=== PATIENT | male | born 1960 | race Asian ===

== ENCOUNTER 2018-05-08 09:40 | Inpatient (IN) | payer OTHER, MEDICAID ==
[~2018-05-08] VITALS: Ht 170.2 cm; Wt 67.6 kg
[~2018-05-08 09:40] MED LIST: ALBUMIN HUMAN 25%-12.5GM/50ML IV BOTTLE IV ONE; AMLO5TAB66 PO; ASPI-556 PO; BENZ100C68 PO; FURO20 PO; INSLAN SQ; INSU100C6 SQ; KDUR10 PO; PANT40TA25 PO; PRAV40TA4 PO; VALS160T2 PO
[2018-05-08] MEDS ORDERED: ALBUTEROL SULFATE 5 MG/ML 20 ML NEB SOLN [BULK] NEB ONE (10:00)
[2018-05-08] MEDS ORDERED: MethylPREDNISolone SOD SUCC 125 MG/2 ML VIAL IVP ONE (10:00)
[2018-05-08] MEDS ORDERED: IPRATROPIUM BROMIDE 0.5 MG/2.5 ML NEB SOLUTION NEB ONE (10:00)
[2018-05-08] MEDS ORDERED: INSULIN REGULAR, HUMAN 100 UNITS/ML IVP ONE ×2 (10:00→15:00)
[2018-05-08 10:32] LABS: BASOPHILS % (AUTO) 0.2 % (0.0-2.0); EOSINOPHILS % (AUTO) 0 % (1.0-6.0); HEMATOCRIT 26.9 % (41-53); HEMOGLOBIN 8.7 g/dL (13.5-17.5); LYMPHOCYTES # (AUTO) 0.3 K/uL (1.0-4.8); LYMPHOCYTES % (AUTO) 2.3 % (22.0-44.0); MEAN CORPUSCULAR HEMOGLOBIN 27.5 pg (26.0-34.0); MEAN CORPUSCULAR HGB CONC 32.4 G/dL (31.0-37.0); MEAN CORPUSCULAR VOLUME 85 fL (80-100); MONOCYTES # (AUTO) 0.3 K/uL (0.1-1.0); MONOCYTES % (AUTO) 2.3 % (2.0-9.0); NEUTROPHILS # (AUTO) 14.2 K/uL (1.8-7.7); NEUTROPHILS % (AUTO) 95.2 % (40.0-70.0); PLATELET COUNT (AUTO) 350 K/uL (150-450); RED BLOOD CELL COUNT(AUTO) 3.17 MIL/uL (4.50-5.90); RED CELL DISTRIBUTION WIDTH 13.9 % (11.5-14.5)
[2018-05-08 10:33] LABS: ABG A-A DIFF O2 377.2 mmHg (10-20.0); ABG BASE EXCESS -18.8 mmol/L (-2.0-3.0); ABG CARBOXYHEMOGLOBIN 0.3 % (0.0-1.5); ABG METHEMOGLOBIN 0.3 % (0.0-1.5); ABG OXYGEN CONTENT 12.2 mL/dL (15.0-23.0); ABG OXYGEN SATURATION 93.9 % (95.0-98.0); ABG OXYHEMOGLOBIN 93.3 % (94.0-100.0); ABG PCO2 30 mmHg (35-45); ABG TOTAL HEMOGLOBIN 9.2 G/dL (12.0-18.0); SOURCE, BLOOD GAS ARTERIAL; TEMPERATURE, FAHRENHEIT, BG 98.6 FAHREN (96.0-98.6)
[2018-05-08 10:34] LABS: ABG PH 7.148 (7.35-7.450); SITE, BLOOD GAS LFT RADIAL
[2018-05-08 10:35] LABS: O2 DEVICE,BLOOD GAS BIPAP (ROOM AIR)
[2018-05-08] MEDS ORDERED: 0.9% SODIUM CHLORIDE 5 ML NEB SOLUTION NEB ONE (10:39)
[2018-05-08] MEDS ORDERED: ONDANSETRON HCL 4 MG/2 ML VIAL IVP ONE ×2 (11:00→16:30)
[2018-05-08 11:06] LABS: ALBUMIN 2.3 g/dL (3.4-5.0); BILIRUBIN,TOTAL 0.3 mg/dL (0.1-1.0); CALCIUM, TOTAL 8.1 mg/dL (8.8-10.5); CREATININE 8.76 mg/dL (0.60-1.30); TOTAL PROTEIN, SERUM 6.4 g/dL (6.4-8.2)
[2018-05-08 11:18] LABS: GLUCOSE,POINT OF CARE 404 MG/DL (70-110)
[2018-05-08] MEDS ORDERED: SLOWK8 PO (11:28)
[2018-05-08 11:32] LABS: POTASSIUM 6.4 mmol/L (3.5-5.1)
[2018-05-08] MEDS ORDERED: ASPIRIN 81 MG CHEWABLE TABLET PO ONE (11:45)
[2018-05-08 11:54] LABS: GLUCOSE,POINT OF CARE 402 MG/DL (70-110)
[2018-05-08] MEDS ORDERED: HEPARIN SODIUM,PORCINE 1,000 UNITS/ML VIAL IVP ONE ×2 (12:00)
[2018-05-08] MEDS ORDERED: NITROGLYCERIN 2% (1 GM=INCH) PACKET TP ONE (12:00)
[2018-05-08] MEDS ORDERED: FUROSEMIDE 40 MG/4 ML VIAL IVP ONE (12:00)
[2018-05-08 12:06] LABS: APPEARANCE,URINE CLOUDY (CLEAR); BILIRUBIN,URINE NEGATIVE (NEGATIVE); GLUCOSE, URINE (UA) >=1000 mg/dL (NEGATIVE); KETONES,URINE NEGATIVE (NEGATIVE); LEUKOCYTE ESTERASE ,URINE NEGATIVE (NEGATIVE); NITRATE,URINE NEGATIVE (NEGATIVE); OCCULT BLOOD,URINE MODERATE (NEGATIVE); PROTEIN,URINE SEE CONFIRM (NEGATIVE); UROBILINOGEN,URINE 0.2 mg/dL (<=1.0)
[2018-05-08 12:29] LABS: SULFOSALICYLIC ACID,URINE 3+ (Negative); WBC,URINE 0-2 /HPF (0-5)
[2018-05-08 12:30] LABS: AMORPHOUS SEDIMENT,UR Moderate /LPF (None Seen); BACTERIA,URINE Moderate /HPF (None Seen); SQUAMOUS EPITHELIAL CELL,UR Few /LPF (None Seen)
[2018-05-08] MEDS ORDERED: POTASSIUM CHLORIDE 40 MEQ in SODIUM CHLORIDE 0.45% 1,000 ML IV PRN (13:07)
[2018-05-08] MEDS ORDERED: INSULIN REGULAR, HUMAN 100 UNITS in SODIUM CHLORIDE 0.9% 99 ML IV PRN ×2 (13:07)
[2018-05-08] MEDS ORDERED: POTASSIUM CHL 20 MEQ/0.45% NS 1,000 ML IV PRN (13:07)
[2018-05-08] MEDS ORDERED: SODIUM CHLORIDE 0.45% 1,000 ML IV PRN (13:07)
[2018-05-08] MEDS ORDERED: DEXTROSE 5%-0.45% SODIUM CHL 1,000 ML IV PRN (13:07)
[2018-05-08] MEDS ORDERED: SODIUM CHLORIDE 0.9% 1,000 ML IV SCH (13:07)
[2018-05-08] MEDS ORDERED: INSULIN REGULAR, HUMAN 100 UNITS/ML IVP PRN (13:15)
[2018-05-08] MEDS ORDERED: DEXTROSE 50%-WATER 25 GM/50 ML SYRINGE IVP PRN ×2 (13:15→22:30)
[2018-05-08] MEDS ORDERED: SODIUM BICARBONATE [ADULT] 8.4% 50 MEQ/50 ML SYRINGE IVP ONE (13:15)
[2018-05-08] MEDS ORDERED: SODIUM CHLORIDE 0.9% 100 ML ONE (13:25)
[2018-05-08] MEDS ORDERED: HEPARIN SODIUM,PORCINE 100 UNITS/ML 5 ML VIAL IVP ONE (13:26)
[2018-05-08] MEDS ORDERED: CefTRIAXone 1 GM/DEXTROSE 50 ML IV ONE (13:30)
[2018-05-08] MEDS ORDERED: HEPARIN SODIUM 25000 UNITS/D5W 250 ML IV PRN (13:41)
[2018-05-08] MEDS ORDERED: HEPARIN SODIUM,PORCINE 5,000 UNITS/ML VIAL IVP PRN ×3 (13:45→23:00)
[2018-05-08 14:17] LABS: GLUCOSE,POINT OF CARE 442 MG/DL (70-110)
[2018-05-08 14:30] LABS: LACTIC ACID 9.1 mmol/L (0.4-2.0)
[2018-05-08 14:32] LABS: CALCIUM, TOTAL 8.1 mg/dL (8.8-10.5); CREATININE 8.65 mg/dL (0.60-1.30); POTASSIUM 5.1 mmol/L (3.5-5.1)
[2018-05-08 14:37] LABS: BASOPHILS % (AUTO) 0.1 % (0.0-2.0); EOSINOPHILS % (AUTO) 0 % (1.0-6.0); HEMATOCRIT 26.3 % (41-53); HEMOGLOBIN 8.4 g/dL (13.5-17.5); LYMPHOCYTES # (AUTO) 0.2 K/uL (1.0-4.8); LYMPHOCYTES % (AUTO) 1.1 % (22.0-44.0); MEAN CORPUSCULAR HEMOGLOBIN 27.2 pg (26.0-34.0); MEAN CORPUSCULAR HGB CONC 31.9 G/dL (31.0-37.0); MEAN CORPUSCULAR VOLUME 86 fL (80-100); MONOCYTES # (AUTO) 0.3 K/uL (0.1-1.0); MONOCYTES % (AUTO) 1.6 % (2.0-9.0); NEUTROPHILS # (AUTO) 18.1 K/uL (1.8-7.7); NEUTROPHILS % (AUTO) 97.2 % (40.0-70.0); PLATELET COUNT (AUTO) 314 K/uL (150-450); RED BLOOD CELL COUNT(AUTO) 3.08 MIL/uL (4.50-5.90); RED CELL DISTRIBUTION WIDTH 13.9 % (11.5-14.5)
[2018-05-08 15:14] LABS: GLUCOSE,POINT OF CARE 479 MG/DL (70-110)
[2018-05-08] MEDS ORDERED: *CLINICAL-CEFEPIME DOSING CLINICAL ONE (16:00)
[2018-05-08 16:24] LABS: GLUCOSE,POINT OF CARE 408 MG/DL (70-110)
[2018-05-08] MEDS ORDERED: CEFEPIME HCL 1 GM in DEXTROSE 5%-WATER 50 ML IV ONE (16:30)
[2018-05-08 17:19] LABS: GLUCOSE,POINT OF CARE 239 MG/DL (70-110)
[2018-05-08 17:43] LABS: CALCIUM, TOTAL 8.8 mg/dL (8.8-10.5); CREATININE 5.89 mg/dL (0.60-1.30); POTASSIUM 4.2 mmol/L (3.5-5.1)
[2018-05-08 18:04] LABS: GLUCOSE,POINT OF CARE 208 MG/DL (70-110)
[2018-05-08] MEDS ORDERED: 0.9% SODIUM CHLORIDE 10 ML SYRINGE IVP PRN (18:30)
[2018-05-08] MEDS ORDERED: ONDANSETRON HCL 4 MG/2 ML VIAL IVP PRN ×2 (18:30→22:30)
[2018-05-08] MEDS ORDERED: ACETAMINOPHEN 325 MG TABLET PO PRN (18:30)
[2018-05-08 20:28] LABS: GLUCOSE,POINT OF CARE 233 MG/DL (70-110)
[2018-05-08] MEDS ORDERED: NOREPINEPHRINE BITARTRATE 8 MG in DEXTROSE 5%-WATER 242 ML IV PRN (20:55)
[2018-05-08 21:11] LABS: CALCIUM, TOTAL 8.3 mg/dL (8.8-10.5); CREATININE 6.8 mg/dL (0.60-1.30); POTASSIUM 4.4 mmol/L (3.5-5.1)
[2018-05-08 22:10] VITALS: BP 126/70
[2018-05-08] MEDS ORDERED: MAGNESIUM HYDROXIDE SUSPENSION 30 ML UDCUP PO PRN (22:30)
[2018-05-08] MEDS ORDERED: ZOLPIDEM TARTRATE 5 MG TABLET PO PRN (22:30)
[2018-05-08] MEDS ORDERED: ALBUTEROL SULFATE 2.5 MG/0.5 ML NEB SOLUTION NEB PRN (22:30)
[2018-05-08] MEDS ORDERED: IPRATROPIUM BROMIDE 0.5 MG/2.5 ML NEB SOLUTION NEB PRN (22:30)
[2018-05-08] MEDS ORDERED: BISACODYL 10 MG RECTAL RECTAL SUPPOSITORY PR PRN (22:30)
[2018-05-08] MEDS: DOXYCYCLINE HYCLATE 100 MG in DEXTROSE 5%-WATER 100 ML IV SCH (22:31)
[2018-05-08] MEDS ORDERED: SODIUM CHLORIDE 0.9% 250 ML IV ONE (22:34)
[2018-05-09] VITALS (8 sets, daily range): BP systolic 103–136; BP diastolic 59–85
[2018-05-09] MEDS ORDERED: HEPARIN SODIUM,PORCINE 5,000 UNITS/ML VIAL SQ SCH
[2018-05-09] MEDS: INSULIN LISPRO 100 UNITS/ML SQ PRN ×6 (00:21→23:32)
[2018-05-09] MEDS: MethylPREDNISolone SOD SUCC 125 MG/2 ML VIAL IVP SCH ×5 (00:22→23:30)
[2018-05-09] MEDS: HEPARIN SODIUM 25000 UNITS/D5W 250 ML IV PRN ×2 (01:35→16:56)
[2018-05-09] MEDS: IPRATROPIUM BROMIDE 0.5 MG/2.5 ML NEB SOLUTION NEB SCH ×4 (02:00→19:44)
[2018-05-09] MEDS: ALBUTEROL SULFATE 2.5 MG/0.5 ML NEB SOLUTION NEB SCH ×4 (02:00→19:44)
[2018-05-09] MEDS ORDERED: PNEUMOCOCCAL VACCINE POLYVALENT 0.5 ML VIAL [PPSV23] IM ONE (04:15)
[2018-05-09 04:54] LABS: GLUCOSE,POINT OF CARE 261 MG/DL (70-110)
[2018-05-09 04:54] LABS: GLUCOSE,POINT OF CARE 210 MG/DL (70-110)
[2018-05-09 06:05] LABS: GLUCOSE,POINT OF CARE 231 MG/DL (70-110)
[2018-05-09 06:48] LABS: BASOPHILS % (AUTO) 0.1 % (0.0-2.0); EOSINOPHILS % (AUTO) 0 % (1.0-6.0); HEMATOCRIT 21.3 % (41-53); HEMOGLOBIN 7.1 g/dL (13.5-17.5); LYMPHOCYTES # (AUTO) 0.6 K/uL (1.0-4.8); LYMPHOCYTES % (AUTO) 2.3 % (22.0-44.0); MEAN CORPUSCULAR HEMOGLOBIN 27.3 pg (26.0-34.0); MEAN CORPUSCULAR HGB CONC 33.5 G/dL (31.0-37.0); MEAN CORPUSCULAR VOLUME 82 fL (80-100); NEUTROPHILS # (AUTO) 23.5 K/uL (1.8-7.7); PLATELET COUNT (AUTO) 245 K/uL (150-450); RED BLOOD CELL COUNT(AUTO) 2.61 MIL/uL (4.50-5.90); RED CELL DISTRIBUTION WIDTH 13.5 % (11.5-14.5)
[2018-05-09 06:55] LABS: NEUTROPHILS % (AUTO) 93.6 % (40.0-70.0)
[2018-05-09 07:45] LABS: ALBUMIN 2.3 g/dL (3.4-5.0); BILIRUBIN,TOTAL 0.2 mg/dL (0.1-1.0); CALCIUM, TOTAL 8.1 mg/dL (8.8-10.5); CREATININE 7.42 mg/dL (0.60-1.30); MAGNESIUM 2.2 mg/dL (1.80-2.40); PHOSPHORUS 6.3 mg/dL (2.5-4.9); POTASSIUM 4.5 mmol/L (3.5-5.1); THYROID STIMULATING HORMONE 1.04 uIU/mL (0.36-3.74); TOTAL PROTEIN, SERUM 5.9 g/dL (6.4-8.2)
[2018-05-09] MEDS: AmLODIPine BESYLATE 5 MG TABLET PO SCH (09:00)
[2018-05-09] MEDS: BENZONATATE 100 MG CAPSULE PO SCH ×3 (09:34→20:46)
[2018-05-09] MEDS: ASPIRIN 81 MG EC TABLET PO SCH (09:34)
[2018-05-09] MEDS: PANTOPRAZOLE SODIUM 40 MG DR TABLET PO SCH (09:35)
[2018-05-09] MEDS: FUROSEMIDE 40 MG/4 ML VIAL IVP SCH ×2 (09:35→20:46)
[2018-05-09] MEDS: ACETAMINOPHEN 325 MG TABLET PO PRN ×2 (09:35→15:05)
[2018-05-09] MEDS: GuaiFENesin SR 600 MG ER TABLET PO SCH ×2 (09:35→20:46)
[2018-05-09] MEDS: DOCUSATE SODIUM 100 MG CAPSULE PO SCH ×2 (09:35→20:45)
[2018-05-09 10:32] LABS: CALCIUM, TOTAL 8.1 mg/dL (8.8-10.5); CREATININE 7.71 mg/dL (0.60-1.30); POTASSIUM 5.1 mmol/L (3.5-5.1)
[2018-05-09] MEDS: DOXYCYCLINE HYCLATE 100 MG in DEXTROSE 5%-WATER 100 ML IV SCH ×2 (10:55→20:46)
[2018-05-09] MEDS ORDERED: HEPARIN SODIUM,PORCINE 1,000 UNITS/ML VIAL IVP ONE ×3 (12:00→16:45)
[2018-05-09] MEDS ORDERED: SODIUM CHLORIDE 0.9% 2,000 ML IV ONE (13:56)
[2018-05-09 14:39] LABS: GLUCOSE,POINT OF CARE 341 MG/DL (70-110)
[2018-05-09] MEDS ORDERED: SODIUM CHLORIDE 0.9% 1,000 ML IV ONE (14:51)
[2018-05-09 15:26] LABS: CALCIUM, TOTAL 7.9 mg/dL (8.8-10.5); CREATININE 7.12 mg/dL (0.60-1.30); POTASSIUM 4.8 mmol/L (3.5-5.1)
[2018-05-09] MEDS ORDERED: MANNITOL 25%-12.5 GM/50 ML VIAL IVP PRN (16:30)
[2018-05-09 16:49] LABS: GLUCOSE,POINT OF CARE 213 MG/DL (70-110)
[2018-05-09 17:07] LABS: MAGNESIUM 2.1 mg/dL (1.80-2.40)
[2018-05-09] MEDS: CEFEPIME HCL 0.5 GM in DEXTROSE 5%-WATER 50 ML IV SCH (18:04)
[2018-05-09] MEDS: PRAVASTATIN SODIUM 40 MG TABLET PO SCH (20:45)
[2018-05-09] MEDS: INSULIN GLARGINE,HUM.REC.ANLOG 100 UNITS/ML SQ SCH (20:52)
[2018-05-09 21:14] LABS: GLUCOSE,POINT OF CARE 271 MG/DL (70-110)
[2018-05-09 21:45] LABS: AMPHET/METH SCREEN,URINE NEGATIVE (NEGATIVE); BARBITURATE SCREEN, URINE NEGATIVE (NEGATIVE); BENZODIAZEPINES SCREEN,URINE NEGATIVE (NEGATIVE); CANNABINOID SCREEN,URINE NEGATIVE (NEGATIVE); COCAINE SCREEN,URINE NEGATIVE (NEGATIVE); METHADONE SCREEN, URINE NEGATIVE (NEGATIVE); OPIATE SCREEN,URINE NEGATIVE (NEGATIVE); PHENCYCLIDINE SCREEN,URINE NEGATIVE (NEGATIVE)
[2018-05-09] MEDS ORDERED: SODIUM CHLORIDE 0.9% 250 ML IV ONE (22:59)
[2018-05-09 23:34] LABS: GLUCOSE,POINT OF CARE 275 MG/DL (70-110)
[2018-05-10] VITALS: BP 130/72
[2018-05-10] MEDS: ALBUTEROL SULFATE 2.5 MG/0.5 ML NEB SOLUTION NEB SCH ×4 (01:58→19:29)
[2018-05-10] MEDS: IPRATROPIUM BROMIDE 0.5 MG/2.5 ML NEB SOLUTION NEB SCH ×4 (01:59→19:29)
[2018-05-10 04:00] VITALS: BP 116/55
[2018-05-10] MEDS: MethylPREDNISolone SOD SUCC 125 MG/2 ML VIAL IVP SCH ×3 (05:13→17:29)
[2018-05-10 06:15] LABS: GLUCOSE,POINT OF CARE 123 MG/DL (70-110)
[2018-05-10 06:54] LABS: CALCIUM, TOTAL 7.8 mg/dL (8.8-10.5); CREATININE 5.18 mg/dL (0.60-1.30); POTASSIUM 4.3 mmol/L (3.5-5.1)
[2018-05-10 08:00] VITALS: BP 154/81
[2018-05-10] MEDS: ASPIRIN 81 MG EC TABLET PO SCH (08:52)
[2018-05-10] MEDS: FUROSEMIDE 40 MG/4 ML VIAL IVP SCH ×2 (08:52→21:27)
[2018-05-10] MEDS: AmLODIPine BESYLATE 5 MG TABLET PO SCH (08:53)
[2018-05-10] MEDS: GuaiFENesin SR 600 MG ER TABLET PO SCH ×2 (08:53→21:27)
[2018-05-10] MEDS: DOCUSATE SODIUM 100 MG CAPSULE PO SCH ×2 (08:53→21:27)
[2018-05-10] MEDS: DOXYCYCLINE HYCLATE 100 MG in DEXTROSE 5%-WATER 100 ML IV SCH ×2 (08:54→22:26)
[2018-05-10] MEDS: BENZONATATE 100 MG CAPSULE PO SCH ×3 (09:00→21:27)
[2018-05-10 11:05] LABS: CALCIUM, TOTAL 7.6 mg/dL (8.8-10.5); CREATININE 5.49 mg/dL (0.60-1.30); POTASSIUM 4.3 mmol/L (3.5-5.1)
[2018-05-10] MEDS: INSULIN LISPRO 100 UNITS/ML SQ PRN ×3 (11:53→18:15)
[2018-05-10 12:00] VITALS: BP 144/81
[2018-05-10] MEDS: PANTOPRAZOLE SODIUM 40 MG DR TABLET PO SCH (12:25)
[2018-05-10 12:54] LABS: GLUCOSE,POINT OF CARE 421 MG/DL (70-110)
[2018-05-10 15:54] LABS: GLUCOSE,POINT OF CARE 396 MG/DL (70-110)
[2018-05-10 15:54] LABS: GLUCOSE,POINT OF CARE 378 MG/DL (70-110)
[2018-05-10 16:00] VITALS: BP 140/80
[2018-05-10 16:54] LABS: HEMATOCRIT 24.5 % (41-53); MEAN CORPUSCULAR HEMOGLOBIN 27.6 pg (26.0-34.0); MEAN CORPUSCULAR HGB CONC 32.7 G/dL (31.0-37.0); MEAN CORPUSCULAR VOLUME 84 fL (80-100); PLATELET COUNT (AUTO) 224 K/uL (150-450); RED BLOOD CELL COUNT(AUTO) 2.91 MIL/uL (4.50-5.90); RED CELL DISTRIBUTION WIDTH 14.9 % (11.5-14.5)
[2018-05-10] MEDS: CEFEPIME HCL 0.5 GM in DEXTROSE 5%-WATER 50 ML IV SCH (17:29)
[2018-05-10 18:14] LABS: BAND NEUTROPHILS % (MANUAL) 2 % (0-5); LYMPHOCYTES % (MANUAL) 2 % (22-44); MONOCYTES % (MANUAL) 2 % (2-9); SEGMENTED NEUTROPHILS % 94 % (40-70)
[2018-05-10] MEDS: HEPARIN SODIUM 25000 UNITS/D5W 250 ML IV PRN (18:24)
[2018-05-10 19:08] LABS: GLUCOSE,POINT OF CARE 330 MG/DL (70-110)
[2018-05-10 20:00] VITALS: BP 144/57
[2018-05-10] MEDS: PRAVASTATIN SODIUM 40 MG TABLET PO SCH (21:27)
[2018-05-10] MEDS: INSULIN GLARGINE,HUM.REC.ANLOG 100 UNITS/ML SQ SCH (21:28)
[2018-05-11] VITALS (7 sets, daily range): BP systolic 113–134; BP diastolic 64–84
[2018-05-11] MEDS: MethylPREDNISolone SOD SUCC 125 MG/2 ML VIAL IVP SCH ×3 (00:05→12:57)
[2018-05-11] MEDS: IPRATROPIUM BROMIDE 0.5 MG/2.5 ML NEB SOLUTION NEB SCH ×4 (02:29→20:35)
[2018-05-11] MEDS: ALBUTEROL SULFATE 2.5 MG/0.5 ML NEB SOLUTION NEB SCH ×4 (02:29→20:35)
[2018-05-11 04:15] LABS: GLUCOSE,POINT OF CARE 131 MG/DL (70-110)
[2018-05-11] MEDS: ACETAMINOPHEN 325 MG TABLET PO PRN (05:56)
[2018-05-11] MEDS: INSULIN LISPRO 100 UNITS/ML SQ PRN ×4 (05:59→20:49)
[2018-05-11 06:17] LABS: BAND NEUTROPHILS % (MANUAL) 0 % (0-5)
[2018-05-11 06:24] LABS: HEMATOCRIT 24.1 % (41-53); HEMOGLOBIN 8.2 g/dL (13.5-17.5); MEAN CORPUSCULAR HEMOGLOBIN 28.8 pg (26.0-34.0); MEAN CORPUSCULAR VOLUME 85 fL (80-100); PLATELET COUNT (AUTO) 229 K/uL (150-450); RED BLOOD CELL COUNT(AUTO) 2.85 MIL/uL (4.50-5.90); RED CELL DISTRIBUTION WIDTH 14.5 % (11.5-14.5)
[2018-05-11 06:36] LABS: CALCIUM, TOTAL 7.8 mg/dL (8.8-10.5); POTASSIUM 4.8 mmol/L (3.5-5.1)
[2018-05-11] MEDS: HEPARIN SODIUM,PORCINE 5,000 UNITS/ML VIAL IVP PRN ×2 (06:55→21:26)
[2018-05-11] MEDS: HEPARIN SODIUM 25000 UNITS/D5W 250 ML IV PRN ×3 (06:57→21:31)
[2018-05-11 07:26] LABS: LYMPHOCYTES % (MANUAL) 1 % (22-44); MONOCYTES % (MANUAL) 2 % (2-9); SEGMENTED NEUTROPHILS % 97 % (40-70)
[2018-05-11] MEDS: DOCUSATE SODIUM 100 MG CAPSULE PO SCH ×2 (07:40→20:45)
[2018-05-11] MEDS ORDERED: SODIUM CHLORIDE 0.9% 2,000 ML IV ONE (07:51)
[2018-05-11 10:44] LABS: GLUCOMETER DEV NAME(LOC) 5S.2; GLUCOSE,POINT OF CARE 351 MG/DL (70-110)
[2018-05-11] MEDS: FUROSEMIDE 40 MG/4 ML VIAL IVP SCH ×2 (12:53→20:45)
[2018-05-11] MEDS: DOXYCYCLINE HYCLATE 100 MG in DEXTROSE 5%-WATER 100 ML IV SCH ×2 (12:53→20:45)
[2018-05-11] MEDS: GuaiFENesin SR 600 MG ER TABLET PO SCH ×2 (12:54→20:45)
[2018-05-11] MEDS: AmLODIPine BESYLATE 5 MG TABLET PO SCH (12:54)
[2018-05-11] MEDS: ASPIRIN 81 MG EC TABLET PO SCH (12:54)
[2018-05-11] MEDS: BENZONATATE 100 MG CAPSULE PO SCH ×3 (12:54→20:46)
[2018-05-11] MEDS: PANTOPRAZOLE SODIUM 40 MG DR TABLET PO SCH (12:57)
[2018-05-11 13:35] LABS: GLUCOMETER DEV NAME(LOC) 5S.1; GLUCOSE,POINT OF CARE 159 MG/DL (70-110)
[2018-05-11] MEDS ORDERED: HEPARIN SODIUM,PORCINE 1,000 UNITS/ML VIAL IVP ONE (16:16)
[2018-05-11] MEDS: MethylPREDNISolone SOD SUCC 40 MG/ML VIAL IVP SCH (18:23)
[2018-05-11] MEDS: CEFEPIME HCL 0.5 GM in DEXTROSE 5%-WATER 50 ML IV SCH (18:27)
[2018-05-11 19:33] LABS: CREATININE,URINE 57.1 mg/dL (30.0-125.0)
[2018-05-11] MEDS: PRAVASTATIN SODIUM 40 MG TABLET PO SCH (20:45)
[2018-05-11] MEDS: INSULIN GLARGINE,HUM.REC.ANLOG 100 UNITS/ML SQ SCH (20:49)
[2018-05-12] MEDS: MethylPREDNISolone SOD SUCC 40 MG/ML VIAL IVP SCH ×3 (01:06→11:55)
[2018-05-12] MEDS: IPRATROPIUM BROMIDE 0.5 MG/2.5 ML NEB SOLUTION NEB SCH ×4 (02:30→19:45)
[2018-05-12] MEDS: ALBUTEROL SULFATE 2.5 MG/0.5 ML NEB SOLUTION NEB SCH ×4 (02:30→19:45)
[2018-05-12 04:12] VITALS: BP 135/82
[2018-05-12 04:18] LABS: BASOPHILS % (AUTO) 0.2 % (0.0-2.0); EOSINOPHILS % (AUTO) 0 % (1.0-6.0); HEMATOCRIT 24.4 % (41-53); HEMOGLOBIN 8.3 g/dL (13.5-17.5); LYMPHOCYTES # (AUTO) 0.4 K/uL (1.0-4.8); LYMPHOCYTES % (AUTO) 1.9 % (22.0-44.0); MEAN CORPUSCULAR HEMOGLOBIN 28.8 pg (26.0-34.0); MEAN CORPUSCULAR VOLUME 85 fL (80-100); MONOCYTES # (AUTO) 1.4 K/uL (0.1-1.0); NEUTROPHILS # (AUTO) 17.9 K/uL (1.8-7.7); PLATELET COUNT (AUTO) 232 K/uL (150-450); RED BLOOD CELL COUNT(AUTO) 2.88 MIL/uL (4.50-5.90); RED CELL DISTRIBUTION WIDTH 14.6 % (11.5-14.5)
[2018-05-12 04:22] LABS: NEUTROPHILS % (AUTO) 90.9 % (40.0-70.0)
[2018-05-12 04:54] LABS: GLUCOMETER DEV NAME(LOC) 5S.1; GLUCOSE,POINT OF CARE 223 MG/DL (70-110)
[2018-05-12 04:54] LABS: GLUCOMETER DEV NAME(LOC) 5S.2; GLUCOSE,POINT OF CARE 225 MG/DL (70-110)
[2018-05-12 04:54] LABS: GLUCOMETER DEV NAME(LOC) 5S.2; GLUCOSE,POINT OF CARE 301 MG/DL (70-110)
[2018-05-12] MEDS: ACETAMINOPHEN 325 MG TABLET PO PRN (07:50)
[2018-05-12 08:15] LABS: GLUCOMETER DEV NAME(LOC) 5S.1; GLUCOSE,POINT OF CARE 177 MG/DL (70-110)
[2018-05-12 08:23] VITALS: BP 125/77
[2018-05-12] MEDS ORDERED: HEPARIN SODIUM 1000 UNITS/NS 500 ML ONE (09:06)
[2018-05-12] MEDS ORDERED: LIDOCAINE/PF 1% 5 ML VIAL ONE (09:06)
[2018-05-12] MEDS ORDERED: HEPARIN SODIUM,PORCINE 1,000 UNITS/ML 10 ML VIAL ONE (09:06)
[2018-05-12] MEDS ORDERED: OxyCODONE HCL/ACETAMINOPHEN 5-325 MG TABLET PO PRN (09:45)
[2018-05-12] MEDS ORDERED: FLUMAZENIL 0.1 MG/ML 5 ML VIAL IVP ONE (10:23)
[2018-05-12] MEDS ORDERED: MIDAZOLAM HCL 2 MG/2 ML VIAL ONE (10:23)
[2018-05-12] MEDS ORDERED: FentaNYL CITRATE-PF 100 MCG/2 ML VIAL ONE (10:23)
[2018-05-12] MEDS ORDERED: NALOXONE HCL 0.4 MG/ML VIAL ONE (10:23)
[2018-05-12] MEDS ORDERED: FentaNYL CITRATE-PF 100 MCG/2 ML VIAL IVP ONE (10:53)
[2018-05-12] MEDS ORDERED: MIDAZOLAM HCL 2 MG/2 ML VIAL IVP ONE (10:53)
[2018-05-12] MEDS: ASPIRIN 81 MG EC TABLET PO SCH (11:54)
[2018-05-12] MEDS: GuaiFENesin SR 600 MG ER TABLET PO SCH ×2 (11:55→20:42)
[2018-05-12] MEDS: BENZONATATE 100 MG CAPSULE PO SCH ×3 (11:55→20:42)
[2018-05-12] MEDS: AmLODIPine BESYLATE 5 MG TABLET PO SCH (11:55)
[2018-05-12] MEDS: FUROSEMIDE 40 MG/4 ML VIAL IVP SCH ×2 (11:55→20:42)
[2018-05-12] MEDS: DOCUSATE SODIUM 100 MG CAPSULE PO SCH ×2 (11:55→20:42)
[2018-05-12] MEDS: PANTOPRAZOLE SODIUM 40 MG DR TABLET PO SCH (11:55)
[2018-05-12] MEDS: DOXYCYCLINE HYCLATE 100 MG in DEXTROSE 5%-WATER 100 ML IV SCH ×2 (11:56→20:42)
[2018-05-12] MEDS: INSULIN LISPRO 100 UNITS/ML SQ PRN ×3 (12:08→20:51)
[2018-05-12 12:09] VITALS: BP 150/81
[2018-05-12] MEDS: PredniSONE 20 MG TABLET PO SCH (13:41)
[2018-05-12 17:02] VITALS: BP 146/79
[2018-05-12] MEDS ORDERED: INSULIN LISPRO 100 UNITS/ML SQ ONE ×2 (18:00→20:45)
[2018-05-12] MEDS ORDERED: SODIUM CHLORIDE 0.9% 250 ML IV ONE (18:12)
[2018-05-12] MEDS: CEFEPIME HCL 0.5 GM in DEXTROSE 5%-WATER 50 ML IV SCH (18:13)
[2018-05-12 20:00] VITALS: BP 132/69
[2018-05-12] MEDS: PRAVASTATIN SODIUM 40 MG TABLET PO SCH (20:42)
[2018-05-12] MEDS: INSULIN GLARGINE,HUM.REC.ANLOG 100 UNITS/ML SQ SCH (20:46)
[2018-05-12 23:45] VITALS: BP 127/69
[2018-05-13] VITALS (19 sets, daily range): BP systolic 130–157; BP diastolic 69–88
[2018-05-13] MEDS: IPRATROPIUM BROMIDE 0.5 MG/2.5 ML NEB SOLUTION NEB SCH ×4 (01:35→19:34)
[2018-05-13] MEDS: ALBUTEROL SULFATE 2.5 MG/0.5 ML NEB SOLUTION NEB SCH ×4 (01:35→19:34)
[2018-05-13 07:23] LABS: BASOPHILS % (AUTO) 0.1 % (0.0-2.0); EOSINOPHILS % (AUTO) 0 % (1.0-6.0); HEMATOCRIT 23.5 % (41-53); HEMOGLOBIN 8.2 g/dL (13.5-17.5); LYMPHOCYTES # (AUTO) 0.2 K/uL (1.0-4.8); LYMPHOCYTES % (AUTO) 1.1 % (22.0-44.0); MEAN CORPUSCULAR HEMOGLOBIN 29.9 pg (26.0-34.0); MEAN CORPUSCULAR HGB CONC 34.9 G/dL (31.0-37.0); MEAN CORPUSCULAR VOLUME 86 fL (80-100); MONOCYTES # (AUTO) 1.3 K/uL (0.1-1.0); MONOCYTES % (AUTO) 6.9 % (2.0-9.0); NEUTROPHILS # (AUTO) 17.6 K/uL (1.8-7.7); PLATELET COUNT (AUTO) 239 K/uL (150-450); RED BLOOD CELL COUNT(AUTO) 2.75 MIL/uL (4.50-5.90); RED CELL DISTRIBUTION WIDTH 14.3 % (11.5-14.5)
[2018-05-13 07:25] LABS: NEUTROPHILS % (AUTO) 91.9 % (40.0-70.0)
[2018-05-13 07:29] LABS: GLUCOMETER DEV NAME(LOC) 5S.1; GLUCOSE,POINT OF CARE 457 MG/DL (70-110)
[2018-05-13 07:38] LABS: CALCIUM, TOTAL 7.7 mg/dL (8.8-10.5); CREATININE 6.6 mg/dL (0.60-1.30); MAGNESIUM 1.5 mg/dL (1.80-2.40); PHOSPHORUS 6.1 mg/dL (2.5-4.9); POTASSIUM 5.2 mmol/L (3.5-5.1)
[2018-05-13 07:47] LABS: PROTHROMBIN TIME 10.7 SEC (9.4-11.6)
[2018-05-13] MEDS ORDERED: SODIUM BICARBONATE 50 MEQ/50 ML VIAL ONE (08:09)
[2018-05-13] MEDS ORDERED: LIDOCAINE/PF 1% 30 ML VIAL ONE (08:09)
[2018-05-13] MEDS ORDERED: IOHEXOL 300 MG/ML 150 ML VIAL ONE (08:10)
[2018-05-13] MEDS ORDERED: MAGNESIUM SULFATE 2 GM/WATER 50 ML IV ONE (08:30)
[2018-05-13] MEDS ORDERED: FentaNYL CITRATE-PF 100 MCG/2 ML VIAL ONE (08:41)
[2018-05-13] MEDS ORDERED: MIDAZOLAM HCL 2 MG/2 ML VIAL ONE (08:42)
[2018-05-13] MEDS: BENZONATATE 100 MG CAPSULE PO SCH ×3 (09:00→20:49)
[2018-05-13] MEDS: DOCUSATE SODIUM 100 MG CAPSULE PO SCH ×2 (09:00→20:49)
[2018-05-13] MEDS: DOXYCYCLINE HYCLATE 100 MG in DEXTROSE 5%-WATER 100 ML IV SCH ×2 (09:00→21:07)
[2018-05-13] MEDS: AmLODIPine BESYLATE 5 MG TABLET PO SCH (09:00)
[2018-05-13] MEDS: FUROSEMIDE 40 MG/4 ML VIAL IVP SCH ×2 (09:00→20:50)
[2018-05-13] MEDS ORDERED: HEPARIN SODIUM 1000 UNITS/NS 1,000 ML IARTER ONE (09:07)
[2018-05-13] MEDS ORDERED: SODIUM CHLORIDE 0.9% 500 ML IV ONE (09:07)
[2018-05-13] MEDS ORDERED: IOHEXOL 300 MG/ML 50 ML VIAL ONE (09:14)
[2018-05-13] MEDS ORDERED: IOHEXOL 300 MG/ML 150 ML VIAL IARTER ONE (09:15)
[2018-05-13] MEDS ORDERED: FentaNYL CITRATE-PF 100 MCG/2 ML VIAL IVP ONE (09:15)
[2018-05-13] MEDS ORDERED: MIDAZOLAM HCL 2 MG/2 ML VIAL IVP ONE (09:15)
[2018-05-13] MEDS ORDERED: LIDOCAINE 1% 30 ML/SOD BICARB 8.4% 4 ML SQ ONE (09:15)
[2018-05-13] MEDS: PANTOPRAZOLE SODIUM 40 MG DR TABLET PO SCH (11:06)
[2018-05-13] MEDS: PredniSONE 20 MG TABLET PO SCH (11:07)
[2018-05-13] MEDS: GuaiFENesin SR 600 MG ER TABLET PO SCH ×2 (11:07→20:49)
[2018-05-13] MEDS: ASPIRIN 81 MG EC TABLET PO SCH (11:07)
[2018-05-13] MEDS: INSULIN LISPRO 100 UNITS/ML SQ PRN ×3 (11:45→21:00)
[2018-05-13 11:52] LABS: LEGIONELLA PNEUMO AG URINE Negative (Negative); ORGANISM ID Not indicated.; S PNEUMO SOURCE Urine; STREP PNEUMONIAE AG URINE Negative (Negative); STREP.PNEUMO BODY FLUID CULT. Not Indicated
[2018-05-13 15:39] LABS: GLUCOMETER DEV NAME(LOC) 5S.2; GLUCOSE,POINT OF CARE 150 MG/DL (70-110)
[2018-05-13 15:39] LABS: GLUCOMETER DEV NAME(LOC) 5S.2; GLUCOSE,POINT OF CARE 346 MG/DL (70-110)
[2018-05-13 15:39] LABS: GLUCOMETER DEV NAME(LOC) 5S.2; GLUCOSE,POINT OF CARE 268 MG/DL (70-110)
[2018-05-13 15:39] LABS: GLUCOMETER DEV NAME(LOC) 5S.2; GLUCOSE,POINT OF CARE 490 MG/DL (70-110)
[2018-05-13] MEDS: CEFEPIME HCL 0.5 GM in DEXTROSE 5%-WATER 50 ML IV SCH (18:47)
[2018-05-13 19:39] LABS: GLUCOMETER DEV NAME(LOC) 5S.1; GLUCOSE,POINT OF CARE 191 MG/DL (70-110)
[2018-05-13 19:39] LABS: GLUCOMETER DEV NAME(LOC) 5S.1; GLUCOSE,POINT OF CARE 171 MG/DL (70-110)
[2018-05-13] MEDS: PRAVASTATIN SODIUM 40 MG TABLET PO SCH (20:49)
[2018-05-13] MEDS: INSULIN GLARGINE,HUM.REC.ANLOG 100 UNITS/ML SQ SCH (20:54)
[2018-05-14 00:22] VITALS: BP 137/71
[2018-05-14] MEDS: ALBUTEROL SULFATE 2.5 MG/0.5 ML NEB SOLUTION NEB SCH ×3 (01:45→14:00)
[2018-05-14] MEDS: IPRATROPIUM BROMIDE 0.5 MG/2.5 ML NEB SOLUTION NEB SCH ×3 (01:45→14:00)
[2018-05-14 04:27] VITALS: BP 142/82
[2018-05-14] MEDS: INSULIN LISPRO 100 UNITS/ML SQ PRN ×2 (06:39→11:31)
[2018-05-14 07:55] VITALS: BP 134/64
[2018-05-14] MEDS: DOCUSATE SODIUM 100 MG CAPSULE PO SCH (07:59)
[2018-05-14] MEDS: ASPIRIN 81 MG EC TABLET PO SCH ×2 (07:59→08:48)
[2018-05-14] MEDS: GuaiFENesin SR 600 MG ER TABLET PO SCH (07:59)
[2018-05-14] MEDS: DOXYCYCLINE HYCLATE 100 MG in DEXTROSE 5%-WATER 100 ML IV SCH (07:59)
[2018-05-14] MEDS: PredniSONE 20 MG TABLET PO SCH (07:59)
[2018-05-14] MEDS: AmLODIPine BESYLATE 5 MG TABLET PO SCH ×2 (08:00→08:49)
[2018-05-14] MEDS: BENZONATATE 100 MG CAPSULE PO SCH (08:00)
[2018-05-14] MEDS: PANTOPRAZOLE SODIUM 40 MG DR TABLET PO SCH (08:00)
[2018-05-14 08:04] LABS: GLUCOMETER DEV NAME(LOC) 5S.2; GLUCOSE,POINT OF CARE 246 MG/DL (70-110)
[2018-05-14 08:09] LABS: GLUCOMETER DEV NAME(LOC) 5S.2; GLUCOSE,POINT OF CARE 314 MG/DL (70-110)
[2018-05-14 08:46] LABS: MAGNESIUM 1.6 mg/dL (1.80-2.40)
[2018-05-14] MEDS: FUROSEMIDE 40 MG/4 ML VIAL IVP SCH (08:47)
[2018-05-14 09:26] LABS: EOSINOPHILS % (AUTO) 0.4 % (1.0-6.0); HEMATOCRIT 26.3 % (41-53); HEMOGLOBIN 8.7 g/dL (13.5-17.5); LYMPHOCYTES # (AUTO) 0.4 K/uL (1.0-4.8); MEAN CORPUSCULAR HEMOGLOBIN 28.6 pg (26.0-34.0); MEAN CORPUSCULAR VOLUME 87 fL (80-100); MONOCYTES # (AUTO) 1.2 K/uL (0.1-1.0); MONOCYTES % (AUTO) 6.8 % (2.0-9.0); NEUTROPHILS # (AUTO) 16.4 K/uL (1.8-7.7); PLATELET COUNT (AUTO) 252 K/uL (150-450); RED BLOOD CELL COUNT(AUTO) 3.04 MIL/uL (4.50-5.90); RED CELL DISTRIBUTION WIDTH 14.8 % (11.5-14.5)
[2018-05-14 09:28] LABS: NEUTROPHILS % (AUTO) 90.8 % (40.0-70.0)
[2018-05-14 09:57] LABS: BILIRUBIN,TOTAL 0.4 mg/dL (0.1-1.0); CREATININE 4.78 mg/dL (0.60-1.30); POTASSIUM 4.2 mmol/L (3.5-5.1); TOTAL PROTEIN, SERUM 5.3 g/dL (6.4-8.2)
[2018-05-14] MEDS ORDERED: MAGNESIUM SULFATE 3 GM in DEXTROSE 5%-WATER 100 ML IV ONE (11:00)
[2018-05-14 11:42] VITALS: BP 142/72
[2018-05-14 12:39] LABS: GLUCOMETER DEV NAME(LOC) 5S.2; GLUCOSE,POINT OF CARE 286 MG/DL (70-110)
[2018-05-14] MEDS ORDERED: HEPARIN SODIUM,PORCINE 1,000 UNITS/ML VIAL IVP ONE (13:49)
[2018-05-14] MEDS ORDERED: AUD NEB ×2 (14:00→14:06)
[2018-05-14] MEDS ORDERED: BENZ-51 PO (14:00)
[2018-05-14] MEDS ORDERED: CEFE2I IV (14:01)
[2018-05-14] MEDS ORDERED: DOXY100I IV (14:02)
[2018-05-14] MEDS ORDERED: DSS100 PO (14:02)
[2018-05-14] MEDS ORDERED: EPOE10003 SQ (14:03)
[2018-05-14] MEDS ORDERED: IPRNEB IH ×2 (14:04→14:09)
[2018-05-14] MEDS ORDERED: GUAI600T30 PO (14:04)
[2018-05-14] MEDS ORDERED: INSLAN SQ (14:04)
[2018-05-14] MEDS ORDERED: PRED20 PO (14:05)
[2018-05-14] MEDS ORDERED: PANT40TA25 PO (14:05)
[2018-05-14] MEDS ORDERED: ACET-2247 PO (14:06)
[2018-05-14] MEDS ORDERED: BISA10S PR (14:06)
[2018-05-14] MEDS ORDERED: INSU100V SQ (14:08)
[2018-05-14] MEDS ORDERED: MOM30 PO (14:09)
[2018-05-14] MEDS ORDERED: ONDA4 IV (14:10)
[2018-05-14] MEDS ORDERED: PERCT PO (14:10)
[2018-05-14] MEDS ORDERED: ZOLP5 PO (14:10)
[2018-05-17] MEDS ORDERED: EPOETIN ALFA 10,000 UNITS/ML VIAL SQ SCH (09:00)
== END 2018-05-14 13:50 | disposition short-term general hospital (02) | DRG 673 ==
LOC: EMS 09:42 → ICU 22:00 → 5S 05-10 23:25
PROVIDERS: ADMIT Internal Medicine; ATTEND Internal Medicine
PROC: 5A1D70Z Performance of Urinary Filtration, Intermittent, Less than 6 Hours Per Day (ICD-10-PCS; 2018-05-08)
PROC: 06H033Z Insertion of Infusion Device into Inferior Vena Cava, Percutaneous Approach (ICD-10-PCS; 2018-05-08)
PROC: 5A09357 Assistance with Respiratory Ventilation, Less than 24 Consecutive Hours, Continuous Positive Airway Pressure (ICD-10-PCS; 2018-05-08)
PROC: 5A1D70Z Performance of Urinary Filtration, Intermittent, Less than 6 Hours Per Day (ICD-10-PCS; principal; 2018-05-09)
PROC: 30233N1 Transfusion of Nonautologous Red Blood Cells into Peripheral Vein, Percutaneous Approach (ICD-10-PCS; 2018-05-09)
PROC: 5A1D70Z Performance of Urinary Filtration, Intermittent, Less than 6 Hours Per Day (ICD-10-PCS; 2018-05-11)
PROC: 0JH63XZ Insertion of Tunneled Vascular Access Device into Chest Subcutaneous Tissue and Fascia, Percutaneous Approach (ICD-10-PCS; 2018-05-12)
PROC: 02HV33Z Insertion of Infusion Device into Superior Vena Cava, Percutaneous Approach (ICD-10-PCS; 2018-05-12)
PROC: B518ZZA Fluoroscopy of Superior Vena Cava, Guidance (ICD-10-PCS; 2018-05-12)
PROC: B548ZZA Ultrasonography of Superior Vena Cava, Guidance (ICD-10-PCS; 2018-05-12)
PROC: 5A1D70Z Performance of Urinary Filtration, Intermittent, Less than 6 Hours Per Day (ICD-10-PCS; 2018-05-13)
PROC: 4A023N7 Measurement of Cardiac Sampling and Pressure, Left Heart, Percutaneous Approach (ICD-10-PCS; 2018-05-13)
PROC: B2111ZZ Fluoroscopy of Multiple Coronary Arteries using Low Osmolar Contrast (ICD-10-PCS; 2018-05-13)
PROC: B2151ZZ Fluoroscopy of Left Heart using Low Osmolar Contrast (ICD-10-PCS; 2018-05-13)
PROC: B41F1ZZ Fluoroscopy of Right Lower Extremity Arteries using Low Osmolar Contrast (ICD-10-PCS; 2018-05-13)
DX: N17.9 Acute kidney failure, unspecified (principal); E11.10 Type 2 diabetes mellitus with ketoacidosis without coma; J96.01 Acute respiratory failure with hypoxia; I21.4 Non-ST elevation (NSTEMI) myocardial infarction; J18.9 Pneumonia, unspecified organism; I50.21 Acute systolic (congestive) heart failure; I13.0 Hypertensive heart and chronic kidney disease with heart failure and stage 1 through stage 4 chronic kidney disease, or unspecified chronic kidney disease; E87.1 Hypo-osmolality and hyponatremia; J44.1 Chronic obstructive pulmonary disease with (acute) exacerbation; M62.82 Rhabdomyolysis; J44.0 Chronic obstructive pulmonary disease with (acute) lower respiratory infection; N18.4 Chronic kidney disease, stage 4 (severe); D64.9 Anemia, unspecified; E11.319 Type 2 diabetes mellitus with unspecified diabetic retinopathy without macular edema; E11.51 Type 2 diabetes mellitus with diabetic peripheral angiopathy without gangrene; E78.00 Pure hypercholesterolemia, unspecified; E78.5 Hyperlipidemia, unspecified; E11.22 Type 2 diabetes mellitus with diabetic chronic kidney disease; E87.5 Hyperkalemia; K64.8 Other hemorrhoids; F41.9 Anxiety disorder, unspecified; Z82.49 Family history of ischemic heart disease and other diseases of the circulatory system; Z83.3 Family history of diabetes mellitus; Z86.73 Personal history of transient ischemic attack (TIA), and cerebral infarction without residual deficits; Z87.441 Personal history of nephrotic syndrome; Z87.891 Personal history of nicotine dependence; Z89.611 Acquired absence of right leg above knee; Z88.1 Allergy status to other antibiotic agents; Z88.8 Allergy status to other drugs, medicaments and biological substances; Z79.899 Other long term (current) drug therapy
CPT/HCPCS: 36245; 36561; 36600; 76000; 76770; 76937; 80307; 81050; 82575; 82805; 83605; 83735; 84100; 84145; 84156; 84166; 84300; 84443; 84540; 85007; 85379; 86850; 86900; 86901; 86920; 87040; 87081; 87086; 87340; 87449; 87899; 93005; 93306; 93970; 94640; 94644; 94645; 94660; 96365; 96366; 96375; 96376; 99291; G0378; G0480; G0481; J0692; J0696; J1642; J1644; J1815; J1940; J2250; J2310; J2405; J2920; J2930; J3010; J3475; J3490; J7030; J7050; J7060; P9016; P9047; Q9967

== ENCOUNTER 2018-09-14 16:29 | Emergency (ER) | payer OTHER, MEDICAID ==
[~2018-09-14] VITALS: Ht 172.7 cm; Wt 65.9 kg
[~2018-09-14 16:29] MED LIST changes: +ACET-2247 PO; -ALBUMIN HUMAN 25%-12.5GM/50ML IV BOTTLE IV ONE; +AUD NEB; +BENZ-51 PO; -BENZ100C68 PO; +BISA10S PR; +CEFE2I IV; +DOXY100I IV; +DSS100 PO; +EPOE10003 SQ; -FURO20 PO; +GUAI600T30 PO; -INSU100C6 SQ; +INSU100V SQ; +IPRNEB IH; -KDUR10 PO; +MOM30 PO; +ONDA4 IV; +PERCT PO; +PRED20 PO; -VALS160T2 PO; +ZOLP5 PO
[2018-09-14] MEDS ORDERED: PHOSLOC PO (16:50)
[2018-09-14] MEDS ORDERED: CARV3 PO (16:50)
[2018-09-14] MEDS ORDERED: MELA3TAB66 PO (16:50)
[2018-09-14] MEDS ORDERED: SIMV-259 PO (16:50)
[2018-09-14 18:28] LABS: BASOPHILS % (AUTO) 0.9 % (0.0-2.0); EOSINOPHILS % (AUTO) 2.8 % (1.0-6.0); HEMATOCRIT 37.1 % (41-53); HEMOGLOBIN 11.6 g/dL (13.5-17.5); LYMPHOCYTES % (AUTO) 14.8 % (22.0-44.0); MEAN CORPUSCULAR HGB CONC 31.2 G/dL (31.0-37.0); MEAN CORPUSCULAR VOLUME 83 fL (80-100); MONOCYTES # (AUTO) 0.7 K/uL (0.1-1.0); NEUTROPHILS # (AUTO) 4.6 K/uL (1.8-7.7); NEUTROPHILS % (AUTO) 70.5 % (40.0-70.0); PLATELET COUNT (AUTO) 195 K/uL (150-450); RED BLOOD CELL COUNT(AUTO) 4.45 MIL/uL (4.50-5.90); RED CELL DISTRIBUTION WIDTH 19.7 % (11.5-14.5)
[2018-09-14 18:40] LABS: PROTHROMBIN TIME 10.9 SEC (9.4-11.6)
[2018-09-14 18:43] LABS: CALCIUM, TOTAL 9.6 mg/dL (8.8-10.5); CREATININE 6.43 mg/dL (0.60-1.30); POTASSIUM 5.1 mmol/L (3.5-5.1)
[2018-09-14 18:48] LABS: ALBUMIN 2.6 g/dL (3.4-5.0); BILIRUBIN,TOTAL 0.7 mg/dL (0.1-1.0); TOTAL PROTEIN, SERUM 7.6 g/dL (6.4-8.2)
[2018-09-14 21:27] VITALS: BP 140/63
== END 2018-09-14 21:31 | disposition short-term general hospital (02) ==
LOC: EMS 16:31
DX: I13.2 Hypertensive heart and chronic kidney disease with heart failure and with stage 5 chronic kidney disease, or end stage renal disease (principal); E11.22 Type 2 diabetes mellitus with diabetic chronic kidney disease; N18.6 End stage renal disease; I50.9 Heart failure, unspecified; R09.89 Other specified symptoms and signs involving the circulatory and respiratory systems; E78.00 Pure hypercholesterolemia, unspecified; Z99.2 Dependence on renal dialysis; Z87.891 Personal history of nicotine dependence; Z88.1 Allergy status to other antibiotic agents; Z88.5 Allergy status to narcotic agent; Z79.82 Long term (current) use of aspirin; Z79.4 Long term (current) use of insulin; Z79.899 Other long term (current) drug therapy
CPT/HCPCS: 93005

== ENCOUNTER 2019-02-08 16:43 | Inpatient (IN) | payer OTHER ==
[~2019-02-08] VITALS: Ht 165.1 cm; Wt 50.7 kg
[~2019-02-08 16:43] MED LIST changes: -BENZ-51 PO; +CARV3 PO; -DOXY100I IV; -GUAI600T30 PO; +MELA3TAB66 PO; +ONDA-104 IV; -ONDA4 IV; +PHOSLOC PO; +SIMV-259 PO
[2019-02-08 17:02] LABS: GLUCOSE,POINT OF CARE 209 MG/DL (70-110)
[2019-02-08 17:15] LABS: BASOPHILS % (AUTO) 0.2 % (0.0-2.0); EOSINOPHILS % (AUTO) 0.9 % (1.0-6.0); HEMATOCRIT 32.1 % (41-53); HEMOGLOBIN 10.4 g/dL (13.5-17.5); LYMPHOCYTES # (AUTO) 0.3 K/uL (1.0-4.8); LYMPHOCYTES % (AUTO) 6.2 % (22.0-44.0); MEAN CORPUSCULAR HEMOGLOBIN 27.8 pg (26.0-34.0); MEAN CORPUSCULAR HGB CONC 32.4 G/dL (31.0-37.0); MEAN CORPUSCULAR VOLUME 86 fL (80-100); MONOCYTES # (AUTO) 0.6 K/uL (0.1-1.0); MONOCYTES % (AUTO) 11.2 % (2.0-9.0); NEUTROPHILS % (AUTO) 81.5 % (40.0-70.0); RED BLOOD CELL COUNT(AUTO) 3.75 MIL/uL (4.50-5.90); RED CELL DISTRIBUTION WIDTH 16.8 % (11.5-14.5)
[2019-02-08 17:27] LABS: ANION GAP 8 mmol/L (8-16); CALCIUM, TOTAL 8.5 mg/dL (8.8-10.5); CARBON DIOXIDE 27 mmol/L (22-29); CHLORIDE 95 mmol/L (98-107); CREATININE 4.31 mg/dL (0.60-1.30); GLOMERULAR FILTR. RATE CALC 14 mL/min (>60); GLUCOSE,RANDOM 231 mg/dL (70-110); POTASSIUM 5.2 mmol/L (3.5-5.1); SODIUM SERUM 130 mmol/L (136-145); UREA NITROGEN, BLOOD 52 mg/dL (7-18)
[2019-02-08 17:33] LABS: ALANINE AMINOTRANSFERASE 19 U/L (12-78); ALBUMIN 2.3 g/dL (3.4-5.0); ALKALINE PHOSPHATASE 187 U/L (46-116); ASPARTATE AMINOTRANSFERASE 59 U/L (15-37); BILIRUBIN,TOTAL 0.9 mg/dL (0.1-1.0); LIPASE 363 U/L (73-393); TOTAL PROTEIN, SERUM 7.5 g/dL (6.4-8.2)
[2019-02-08 17:34] LABS: LACTIC ACID 1.7 mmol/L (0.4-2.0)
[2019-02-08 17:50] LABS: B-TYPE NATRIURETIC PEPTIDE > 5000 pg/mL (0-100)
[2019-02-08 17:56] LABS: PLATELET COUNT (AUTO) 152 K/uL (150-450)
[2019-02-08] MEDS ORDERED: DOCU-275 PO (19:10)
[2019-02-08] MEDS ORDERED: BISA10SU11 PR (19:10)
[2019-02-08] MEDS ORDERED: 0.9% SODIUM CHLORIDE 10 ML SYRINGE IVP PRN (19:15)
[2019-02-08] MEDS ORDERED: ACETAMINOPHEN 325 MG TABLET PO PRN (19:15)
[2019-02-08] MEDS ORDERED: ALBUTEROL SULFATE 2.5 MG/0.5 ML NEB SOLUTION NEB ONE (19:15)
[2019-02-08] MEDS ORDERED: FUROSEMIDE 40 MG/4 ML VIAL IVP ONE (19:15)
[2019-02-08] MEDS ORDERED: ONDANSETRON HCL 4 MG/2 ML VIAL IVP PRN (19:15)
[2019-02-08] MEDS ORDERED: SODIUM POLYSTYRENE SULFONATE 15 GM/60 ML SUSPENSION BOTTLE PO ONE (19:30)
[2019-02-08] MEDS ORDERED: 0.9% SODIUM CHLORIDE 5 ML NEB SOLUTION NEB ONE (19:46)
[2019-02-08] MEDS ORDERED: OXYGEN THERAPY IH SCH (20:00)
[2019-02-08] MEDS ORDERED: LOSA50TA65 PO (20:30)
[2019-02-08] MEDS ORDERED: ASPI81TA39 PO (20:30)
[2019-02-08] MEDS ORDERED: SIMV-46 PO (20:30)
[2019-02-08] MEDS ORDERED: CARV12.530 PO (20:30)
[2019-02-08] MEDS ORDERED: SEVE800T7 PO (20:30)
[2019-02-08 21:16] VITALS: BP 148/74
[2019-02-08] MEDS ORDERED: DEXTROSE 50%-WATER 25 GM/50 ML SYRINGE IVP PRN (22:30)
[2019-02-08] MEDS ORDERED: BISACODYL 10 MG RECTAL RECTAL SUPPOSITORY PR PRN (22:45)
[2019-02-08] MEDS ORDERED: ZOLPIDEM TARTRATE 5 MG TABLET PO PRN (22:45)
[2019-02-08] MEDS ORDERED: MAGNESIUM HYDROXIDE SUSPENSION 30 ML UDCUP PO PRN (22:45)
[2019-02-08] MEDS: HEPARIN SODIUM,PORCINE 5,000 UNITS/ML VIAL SQ SCH (23:16)
[2019-02-08] MEDS: INSULIN LISPRO 100 UNITS/ML SQ PRN (23:19)
[2019-02-09] VITALS (7 sets, daily range): BP systolic 150–166; BP diastolic 77–94
[2019-02-09 06:53] LABS: BASOPHILS % (AUTO) 0.3 % (0.0-2.0); EOSINOPHILS % (AUTO) 1.2 % (1.0-6.0); HEMATOCRIT 33.2 % (41-53); HEMOGLOBIN 10.7 g/dL (13.5-17.5); LYMPHOCYTES # (AUTO) 0.4 K/uL (1.0-4.8); LYMPHOCYTES % (AUTO) 7.8 % (22.0-44.0); MEAN CORPUSCULAR HEMOGLOBIN 27.7 pg (26.0-34.0); MEAN CORPUSCULAR HGB CONC 32.2 G/dL (31.0-37.0); MEAN CORPUSCULAR VOLUME 86 fL (80-100); MONOCYTES # (AUTO) 0.6 K/uL (0.1-1.0); MONOCYTES % (AUTO) 10.2 % (2.0-9.0); NEUTROPHILS # (AUTO) 4.6 K/uL (1.8-7.7); NEUTROPHILS % (AUTO) 80.5 % (40.0-70.0); RED BLOOD CELL COUNT(AUTO) 3.85 MIL/uL (4.50-5.90); RED CELL DISTRIBUTION WIDTH 16.5 % (11.5-14.5)
[2019-02-09 06:57] LABS: GLUCOMETER DEV NAME(LOC) 5S.2A; GLUCOSE,POINT OF CARE 178 MG/DL (70-110)
[2019-02-09 07:14] LABS: CALCIUM, TOTAL 8.4 mg/dL (8.8-10.5); CHOL/HDL RATIO 1.9 (4.2-7.3); CREATININE 5.04 mg/dL (0.60-1.30); FREE T4 (FREE THYROXINE) 1.25 ng/dL (0.76-1.46); MAGNESIUM 2.3 mg/dL (1.80-2.40); POTASSIUM 4.4 mmol/L (3.5-5.1); THYROID STIMULATING HORMONE 2.81 uIU/mL (0.36-3.74)
[2019-02-09 07:52] LABS: HEMOGLOBIN A1C 7.6 % (4.5-6.2)
[2019-02-09] MEDS: ASPIRIN 81 MG CHEWABLE TABLET PO SCH (08:23)
[2019-02-09] MEDS: LOSARTAN POTASSIUM 50 MG TABLET PO SCH (08:23)
[2019-02-09] MEDS: SEVELAMER CARBONATE 800 MG TABLET PO SCH ×3 (08:24→22:01)
[2019-02-09] MEDS: HEPARIN SODIUM,PORCINE 5,000 UNITS/ML VIAL SQ SCH ×2 (08:24→22:01)
[2019-02-09] MEDS: AmLODIPine BESYLATE 10 MG TABLET PO SCH (09:00)
[2019-02-09] MEDS: CARVEDILOL 12.5 MG TABLET PO SCH ×2 (09:00→22:01)
[2019-02-09 11:05] LABS: PLATELET COUNT (AUTO) 143 K/uL (150-450)
[2019-02-09 11:14] LABS: INR 1.2 (0.9-1.1); PROTHROMBIN TIME 12.4 SEC (9.4-11.6)
[2019-02-09] MEDS ORDERED: SODIUM CHLORIDE 0.9% 2,000 ML IV ONE (16:45)
[2019-02-09 16:56] LABS: GLUCOMETER DEV NAME(LOC) 5S.1; GLUCOSE,POINT OF CARE 118 MG/DL (70-110)
[2019-02-09] MEDS: ONDANSETRON HCL 4 MG/2 ML VIAL IVP PRN (19:05)
[2019-02-09] MEDS ORDERED: INSULIN GLARGINE,HUM.REC.ANLOG 100 UNITS/ML SQ SCH (21:00)
[2019-02-09] MEDS: INSULIN GLARGINE,HUM.REC.ANLOG 100 UNITS/ML SQ SCH (21:00)
[2019-02-09 21:48] LABS: SPECIMENTYPE,BODY FLUID THORACENTESIS
[2019-02-09 22:00] LABS: APPEARANCE,SPUN,BODY FLUID CLEAR (CLEAR); APPEARANCE,UNSPUN,BODY FLUID CLOUDY (CLEAR); COLOR,BODY FLUID LT YELLOW (LT YELLOW); NEUTROPHILS,BODY FLUID 25 %; TOTAL VOLUME,BODY FLUID 160 mL; WBC, BODY FLUID 45 /cu. mm.
[2019-02-09 22:01] LABS: BASOPHILS,BODY FLUID 0 %; EOSINOPHILS,BF (ANAL) 0 %; LYMPHOCYTES,BODY FLUID 75 %; MONOCYTES,BODY FLUID 0 %; PH, BODY FLUID 8
[2019-02-09] MEDS: PANTOPRAZOLE SODIUM 40 MG DR TABLET PO SCH (22:01)
[2019-02-10 04:35] VITALS: BP 160/82
[2019-02-10 06:07] LABS: GLUCOMETER DEV NAME(LOC) 5S.2A; GLUCOSE,POINT OF CARE 123 MG/DL (70-110)
[2019-02-10 07:12] LABS: GLUCOMETER DEV NAME(LOC) 5S.1; GLUCOSE,POINT OF CARE 94 MG/DL (70-110)
[2019-02-10 07:12] LABS: GLUCOMETER DEV NAME(LOC) 5S.1; GLUCOSE,POINT OF CARE 75 MG/DL (70-110)
[2019-02-10 07:14] LABS: BASOPHILS % (AUTO) 0.5 % (0.0-2.0); EOSINOPHILS % (AUTO) 1.2 % (1.0-6.0); HEMATOCRIT 34.3 % (41-53); HEMOGLOBIN 11.1 g/dL (13.5-17.5); LYMPHOCYTES # (AUTO) 0.3 K/uL (1.0-4.8); LYMPHOCYTES % (AUTO) 6.7 % (22.0-44.0); MEAN CORPUSCULAR HEMOGLOBIN 27.8 pg (26.0-34.0); MEAN CORPUSCULAR HGB CONC 32.3 G/dL (31.0-37.0); MEAN CORPUSCULAR VOLUME 86 fL (80-100); MONOCYTES # (AUTO) 0.4 K/uL (0.1-1.0); MONOCYTES % (AUTO) 8.3 % (2.0-9.0); NEUTROPHILS # (AUTO) 4.1 K/uL (1.8-7.7); NEUTROPHILS % (AUTO) 83.3 % (40.0-70.0); RED BLOOD CELL COUNT(AUTO) 3.99 MIL/uL (4.50-5.90); RED CELL DISTRIBUTION WIDTH 16.4 % (11.5-14.5)
[2019-02-10 07:24] LABS: ALANINE AMINOTRANSFERASE 12 U/L (12-78); ALBUMIN 2.1 g/dL (3.4-5.0); ALKALINE PHOSPHATASE 160 U/L (46-116); ANION GAP 11 mmol/L (8-16); ASPARTATE AMINOTRANSFERASE 33 U/L (15-37); BILIRUBIN,TOTAL 0.7 mg/dL (0.1-1.0); CALCIUM, TOTAL 8.2 mg/dL (8.8-10.5); CARBON DIOXIDE 27 mmol/L (22-29); CHLORIDE 99 mmol/L (98-107); CREATININE 3.49 mg/dL (0.60-1.30); GLOMERULAR FILTR. RATE CALC 18 mL/min (>60); GLUCOSE,RANDOM 80 mg/dL (70-110); POTASSIUM 4.4 mmol/L (3.5-5.1); SODIUM SERUM 137 mmol/L (136-145); TOTAL PROTEIN, SERUM 7.2 g/dL (6.4-8.2); UREA NITROGEN, BLOOD 30 mg/dL (7-18)
[2019-02-10 07:28] LABS: B-TYPE NATRIURETIC PEPTIDE > 5000 pg/mL (0-100)
[2019-02-10 07:40] LABS: PLATELET COUNT (AUTO) 143 K/uL (150-450)
[2019-02-10 08:01] VITALS: BP 160/79
[2019-02-10] MEDS: IPRATROPIUM BROMIDE 0.5 MG/2.5 ML NEB SOLUTION NEB PRN ×2 (08:39→15:20)
[2019-02-10] MEDS: ALBUTEROL SULFATE 2.5 MG/0.5 ML NEB SOLUTION NEB PRN ×2 (08:40→15:20)
[2019-02-10] MEDS: HEPARIN SODIUM,PORCINE 5,000 UNITS/ML VIAL SQ SCH ×2 (09:00→21:40)
[2019-02-10] MEDS: SEVELAMER CARBONATE 800 MG TABLET PO SCH ×3 (09:00→21:40)
[2019-02-10] MEDS: CARVEDILOL 12.5 MG TABLET PO SCH ×2 (09:00→21:40)
[2019-02-10 11:30] VITALS: BP 150/80
[2019-02-10] MEDS: ASPIRIN 81 MG CHEWABLE TABLET PO SCH (12:23)
[2019-02-10] MEDS: ISONIAZID 300 MG TABLET PO SCH (12:23)
[2019-02-10] MEDS: LOSARTAN POTASSIUM 50 MG TABLET PO SCH (12:23)
[2019-02-10] MEDS: PYRAZINAMIDE 500 MG TABLET PO SCH (12:24)
[2019-02-10] MEDS: ETHAMBUTOL HCL 400 MG TABLET PO SCH (12:24)
[2019-02-10] MEDS: RIFAMPIN 300 MG CAPSULE PO SCH (12:25)
[2019-02-10] MEDS: PYRIDOXINE HCL 50 MG TABLET PO SCH (12:25)
[2019-02-10 16:08] VITALS: BP 159/80
[2019-02-10] MEDS: AmLODIPine BESYLATE 10 MG TABLET PO SCH (16:16)
[2019-02-10] MEDS ORDERED: SODIUM CHLORIDE 0.9% 2,000 ML IV ONE (16:24)
[2019-02-10 17:11] LABS: GLUCOMETER DEV NAME(LOC) 5S.1; GLUCOSE,POINT OF CARE 91 MG/DL (70-110)
[2019-02-10 17:11] LABS: GLUCOMETER DEV NAME(LOC) 5S.1; GLUCOSE,POINT OF CARE 179 MG/DL (70-110)
[2019-02-10] MEDS: LORazepam 0.5 MG TABLET PO PRN (18:01)
[2019-02-10] MEDS: INSULIN LISPRO 100 UNITS/ML SQ PRN (18:01)
[2019-02-10 19:36] VITALS: BP 119/58
[2019-02-10] MEDS: INSULIN GLARGINE,HUM.REC.ANLOG 100 UNITS/ML SQ SCH (21:00)
[2019-02-10] MEDS: PANTOPRAZOLE SODIUM 40 MG DR TABLET PO SCH (21:40)
[2019-02-10 23:37] VITALS: BP 129/64
[2019-02-11 05:57] VITALS: BP 155/77
[2019-02-11 06:28] LABS: BASOPHILS % (AUTO) 0.5 % (0.0-2.0); EOSINOPHILS % (AUTO) 1.8 % (1.0-6.0); HEMATOCRIT 32.5 % (41-53); HEMOGLOBIN 10.4 g/dL (13.5-17.5); LYMPHOCYTES # (AUTO) 0.4 K/uL (1.0-4.8); MEAN CORPUSCULAR HEMOGLOBIN 27.4 pg (26.0-34.0); MEAN CORPUSCULAR VOLUME 86 fL (80-100); MONOCYTES # (AUTO) 0.5 K/uL (0.1-1.0); MONOCYTES % (AUTO) 11.6 % (2.0-9.0); NEUTROPHILS # (AUTO) 3.6 K/uL (1.8-7.7); NEUTROPHILS % (AUTO) 77.1 % (40.0-70.0); RED BLOOD CELL COUNT(AUTO) 3.78 MIL/uL (4.50-5.90); RED CELL DISTRIBUTION WIDTH 16.7 % (11.5-14.5)
[2019-02-11 06:41] LABS: CALCIUM, TOTAL 8.1 mg/dL (8.8-10.5); CREATININE 3.47 mg/dL (0.60-1.30); MAGNESIUM 1.8 mg/dL (1.80-2.40); PHOSPHORUS 3.5 mg/dL (2.5-4.9); POTASSIUM 4.5 mmol/L (3.5-5.1)
[2019-02-11 07:39] VITALS: BP 117/58
[2019-02-11] MEDS: LOSARTAN POTASSIUM 50 MG TABLET PO SCH (08:00)
[2019-02-11 08:20] LABS: PLATELET COUNT (AUTO) 157 K/uL (150-450)
[2019-02-11] MEDS: HEPARIN SODIUM,PORCINE 5,000 UNITS/ML VIAL SQ SCH ×2 (08:41→21:35)
[2019-02-11] MEDS: PYRIDOXINE HCL 50 MG TABLET PO SCH (08:42)
[2019-02-11] MEDS: RIFAMPIN 300 MG CAPSULE PO SCH (08:43)
[2019-02-11] MEDS: AmLODIPine BESYLATE 10 MG TABLET PO SCH (08:43)
[2019-02-11] MEDS: ISONIAZID 300 MG TABLET PO SCH (08:43)
[2019-02-11] MEDS: SEVELAMER CARBONATE 800 MG TABLET PO SCH ×2 (08:43→17:56)
[2019-02-11] MEDS: ASPIRIN 81 MG CHEWABLE TABLET PO SCH (08:44)
[2019-02-11 09:46] VITALS: BP 130/64
[2019-02-11] MEDS: CARVEDILOL 12.5 MG TABLET PO SCH ×2 (09:48→21:35)
[2019-02-11 12:05] VITALS: BP 132/61
[2019-02-11 12:31] LABS: GLUCOMETER DEV NAME(LOC) 5S.1; GLUCOSE,POINT OF CARE 289 MG/DL (70-110)
[2019-02-11 12:31] LABS: GLUCOMETER DEV NAME(LOC) 5S.1; GLUCOSE,POINT OF CARE 142 MG/DL (70-110)
[2019-02-11 12:31] LABS: GLUCOMETER DEV NAME(LOC) 5S.1; GLUCOSE,POINT OF CARE 79 MG/DL (70-110)
[2019-02-11] MEDS: INSULIN LISPRO 100 UNITS/ML SQ PRN ×2 (12:34→21:41)
[2019-02-11] MEDS: IPRATROPIUM BROMIDE 0.5 MG/2.5 ML NEB SOLUTION NEB PRN (14:55)
[2019-02-11] MEDS: ALBUTEROL SULFATE 2.5 MG/0.5 ML NEB SOLUTION NEB PRN (14:55)
[2019-02-11] MEDS ORDERED: AMLO10TA7 PO (15:26)
[2019-02-11 15:34] VITALS: BP 126/57
[2019-02-11] MEDS: LORazepam 0.5 MG TABLET PO PRN (17:01)
[2019-02-11 17:36] LABS: GLUCOMETER DEV NAME(LOC) 5S.1; GLUCOSE,POINT OF CARE 119 MG/DL (70-110)
[2019-02-11 19:29] VITALS: BP 141/75
[2019-02-11] MEDS: BUDESONIDE 0.5 MG/2 ML NEB SOLUTION NEB SCH (19:55)
[2019-02-11] MEDS: IPRATROPIUM BROMIDE 0.5 MG/2.5 ML NEB SOLUTION NEB SCH ×2 (19:55→23:38)
[2019-02-11] MEDS: ALBUTEROL SULFATE 2.5 MG/0.5 ML NEB SOLUTION NEB SCH ×2 (19:55→23:38)
[2019-02-11] MEDS: PANTOPRAZOLE SODIUM 40 MG DR TABLET PO SCH (21:35)
[2019-02-11] MEDS: INSULIN GLARGINE,HUM.REC.ANLOG 100 UNITS/ML SQ SCH (21:40)
[2019-02-12] VITALS (7 sets, daily range): BP systolic 120–150; BP diastolic 61–73
[2019-02-12] MEDS: IPRATROPIUM BROMIDE 0.5 MG/2.5 ML NEB SOLUTION NEB SCH ×5 (03:09→20:26)
[2019-02-12] MEDS: ALBUTEROL SULFATE 2.5 MG/0.5 ML NEB SOLUTION NEB SCH ×5 (03:10→20:27)
[2019-02-12] MEDS: BUDESONIDE 0.5 MG/2 ML NEB SOLUTION NEB SCH ×2 (08:32→21:00)
[2019-02-12] MEDS: HEPARIN SODIUM,PORCINE 5,000 UNITS/ML VIAL SQ SCH ×2 (09:57→20:41)
[2019-02-12] MEDS: PYRIDOXINE HCL 50 MG TABLET PO SCH (09:57)
[2019-02-12] MEDS: ASPIRIN 81 MG CHEWABLE TABLET PO SCH (09:57)
[2019-02-12] MEDS: SEVELAMER CARBONATE 800 MG TABLET PO SCH ×3 (10:03→18:28)
[2019-02-12] MEDS: LOSARTAN POTASSIUM 50 MG TABLET PO SCH (11:25)
[2019-02-12] MEDS: AmLODIPine BESYLATE 10 MG TABLET PO SCH (11:25)
[2019-02-12] MEDS: ISONIAZID 300 MG TABLET PO SCH (11:25)
[2019-02-12] MEDS: CARVEDILOL 12.5 MG TABLET PO SCH ×2 (11:25→20:41)
[2019-02-12] MEDS: RIFAMPIN 300 MG CAPSULE PO SCH (11:26)
[2019-02-12] MEDS: PYRAZINAMIDE 500 MG TABLET PO SCH (11:26)
[2019-02-12] MEDS: ETHAMBUTOL HCL 400 MG TABLET PO SCH (11:26)
[2019-02-12 17:47] LABS: GLUCOMETER DEV NAME(LOC) 5S.1; GLUCOSE,POINT OF CARE 160 MG/DL (70-110)
[2019-02-12 17:47] LABS: GLUCOMETER DEV NAME(LOC) 5S.1; GLUCOSE,POINT OF CARE 112 MG/DL (70-110)
[2019-02-12 17:47] LABS: GLUCOMETER DEV NAME(LOC) 5S.1; GLUCOSE,POINT OF CARE 13 MG/DL (70-110)
[2019-02-12 17:47] LABS: GLUCOMETER DEV NAME(LOC) 5S.1; GLUCOSE,POINT OF CARE 150 MG/DL (70-110)
[2019-02-12 17:47] LABS: GLUCOMETER DEV NAME(LOC) 5S.1; GLUCOSE,POINT OF CARE 97 MG/DL (70-110)
[2019-02-12 17:47] LABS: GLUCOMETER DEV NAME(LOC) 5S.1; GLUCOSE,POINT OF CARE 117 MG/DL (70-110)
[2019-02-12] MEDS: PANTOPRAZOLE SODIUM 40 MG DR TABLET PO SCH (20:41)
[2019-02-12] MEDS: INSULIN GLARGINE,HUM.REC.ANLOG 100 UNITS/ML SQ SCH (21:00)
[2019-02-13 03:53] VITALS: BP 133/70
[2019-02-13] MEDS ORDERED: 0.9% SODIUM CHLORIDE 5 ML NEB SOLUTION NEB ONE (04:00)
[2019-02-13] MEDS: IPRATROPIUM BROMIDE 0.5 MG/2.5 ML NEB SOLUTION NEB SCH ×7 (04:10→23:13)
[2019-02-13] MEDS: ALBUTEROL SULFATE 2.5 MG/0.5 ML NEB SOLUTION NEB SCH ×7 (04:10→23:13)
[2019-02-13 08:21] VITALS: BP 130/67
[2019-02-13] MEDS: BUDESONIDE 0.5 MG/2 ML NEB SOLUTION NEB SCH ×2 (08:30→19:04)
[2019-02-13] MEDS: SEVELAMER CARBONATE 800 MG TABLET PO SCH ×3 (08:53→17:51)
[2019-02-13] MEDS: RIFAMPIN 300 MG CAPSULE PO SCH (08:53)
[2019-02-13] MEDS: PYRIDOXINE HCL 50 MG TABLET PO SCH (08:53)
[2019-02-13] MEDS: CARVEDILOL 12.5 MG TABLET PO SCH ×2 (08:54→21:31)
[2019-02-13] MEDS: HEPARIN SODIUM,PORCINE 5,000 UNITS/ML VIAL SQ SCH ×2 (08:54→21:31)
[2019-02-13] MEDS: ASPIRIN 81 MG CHEWABLE TABLET PO SCH (08:55)
[2019-02-13] MEDS: ISONIAZID 300 MG TABLET PO SCH (08:55)
[2019-02-13] MEDS: LOSARTAN POTASSIUM 50 MG TABLET PO SCH (10:35)
[2019-02-13] MEDS: AmLODIPine BESYLATE 10 MG TABLET PO SCH (10:35)
[2019-02-13 10:53] VITALS: BP 142/67
[2019-02-13 11:42] LABS: GLUCOMETER DEV NAME(LOC) 5S.2A; GLUCOSE,POINT OF CARE 128 MG/DL (70-110)
[2019-02-13 14:31] LABS: GLUCOMETER DEV NAME(LOC) 5S.1; GLUCOSE,POINT OF CARE 20 MG/DL (70-110)
[2019-02-13 14:31] LABS: GLUCOMETER DEV NAME(LOC) 5S.1; GLUCOSE,POINT OF CARE 147 MG/DL (70-110)
[2019-02-13 14:31] LABS: GLUCOMETER DEV NAME(LOC) 5S.1; GLUCOSE,POINT OF CARE 147 MG/DL (70-110)
[2019-02-13 14:31] LABS: GLUCOMETER DEV NAME(LOC) 5S.1; GLUCOSE,POINT OF CARE 198 MG/DL (70-110)
[2019-02-13] MEDS: ONDANSETRON HCL 4 MG/2 ML VIAL IVP PRN (16:02)
[2019-02-13 16:15] VITALS: BP 139/77
[2019-02-13 18:08] LABS: HEMATOCRIT 32.1 % (41-53); HEMOGLOBIN 10.6 g/dL (13.5-17.5)
[2019-02-13 19:55] VITALS: BP 146/71
[2019-02-13] MEDS: PANTOPRAZOLE SODIUM 40 MG DR TABLET PO SCH (21:31)
[2019-02-13 23:07] VITALS: BP 131/63
[2019-02-14 00:39] LABS: HEMATOCRIT 31.4 % (41-53); HEMOGLOBIN 10.1 g/dL (13.5-17.5)
[2019-02-14] MEDS: ALBUTEROL SULFATE 2.5 MG/0.5 ML NEB SOLUTION NEB SCH ×7 (02:13→23:17)
[2019-02-14] MEDS: IPRATROPIUM BROMIDE 0.5 MG/2.5 ML NEB SOLUTION NEB SCH ×7 (02:13→23:17)
[2019-02-14 04:12] VITALS: BP 138/62
[2019-02-14] MEDS: INSULIN LISPRO 100 UNITS/ML SQ PRN ×2 (06:18→21:14)
[2019-02-14 07:30] VITALS: BP 135/68
[2019-02-14 07:41] LABS: GLUCOMETER DEV NAME(LOC) 5S.1; GLUCOSE,POINT OF CARE 131 MG/DL (70-110)
[2019-02-14] MEDS: BUDESONIDE 0.5 MG/2 ML NEB SOLUTION NEB SCH ×2 (08:34→19:39)
[2019-02-14 09:32] LABS: BASOPHILS % (AUTO) 0.1 % (0.0-2.0); EOSINOPHILS % (AUTO) 1.6 % (1.0-6.0); HEMATOCRIT 33.1 % (41-53); HEMOGLOBIN 10.6 g/dL (13.5-17.5); LYMPHOCYTES # (AUTO) 0.4 K/uL (1.0-4.8); LYMPHOCYTES % (AUTO) 6.5 % (22.0-44.0); MEAN CORPUSCULAR HEMOGLOBIN 27.7 pg (26.0-34.0); MEAN CORPUSCULAR HGB CONC 32.1 G/dL (31.0-37.0); MEAN CORPUSCULAR VOLUME 86 fL (80-100); MONOCYTES # (AUTO) 0.5 K/uL (0.1-1.0); MONOCYTES % (AUTO) 8.2 % (2.0-9.0); NEUTROPHILS # (AUTO) 5.2 K/uL (1.8-7.7); NEUTROPHILS % (AUTO) 83.6 % (40.0-70.0); RED BLOOD CELL COUNT(AUTO) 3.84 MIL/uL (4.50-5.90); RED CELL DISTRIBUTION WIDTH 16.6 % (11.5-14.5)
[2019-02-14 09:50] VITALS: BP 123/54
[2019-02-14] MEDS: CARVEDILOL 12.5 MG TABLET PO SCH ×2 (09:53→21:07)
[2019-02-14] MEDS: SEVELAMER CARBONATE 800 MG TABLET PO SCH ×3 (09:53→19:02)
[2019-02-14] MEDS: AmLODIPine BESYLATE 10 MG TABLET PO SCH (09:53)
[2019-02-14] MEDS: RIFAMPIN 300 MG CAPSULE PO SCH (09:53)
[2019-02-14] MEDS: ASPIRIN 81 MG CHEWABLE TABLET PO SCH (09:53)
[2019-02-14] MEDS: LOSARTAN POTASSIUM 50 MG TABLET PO SCH (09:53)
[2019-02-14] MEDS: ISONIAZID 300 MG TABLET PO SCH (09:54)
[2019-02-14] MEDS: HEPARIN SODIUM,PORCINE 5,000 UNITS/ML VIAL SQ SCH ×2 (09:54→21:08)
[2019-02-14] MEDS: PYRIDOXINE HCL 50 MG TABLET PO SCH (09:54)
[2019-02-14 10:01] LABS: PLATELET COUNT (AUTO) 169 K/uL (150-450)
[2019-02-14 10:08] LABS: CALCIUM, TOTAL 8.5 mg/dL (8.8-10.5); CREATININE 5.24 mg/dL (0.60-1.30); MAGNESIUM 1.9 mg/dL (1.80-2.40); PHOSPHORUS 3.8 mg/dL (2.5-4.9)
[2019-02-14 10:36] LABS: GLUCOMETER DEV NAME(LOC) 5S.1; GLUCOSE,POINT OF CARE 113 MG/DL (70-110)
[2019-02-14 12:22] LABS: GLUCOMETER DEV NAME(LOC) 5S.1; GLUCOSE,POINT OF CARE 81 MG/DL (70-110)
[2019-02-14 12:45] LABS: HEMOGLOBIN 9.8 g/dL (13.5-17.5)
[2019-02-14 15:13] VITALS: BP 136/62
[2019-02-14 20:33] VITALS: BP 165/78
[2019-02-14] MEDS: PANTOPRAZOLE SODIUM 40 MG DR TABLET PO SCH (21:07)
[2019-02-14 23:59] VITALS: BP 141/67
[2019-02-15] VITALS (8 sets, daily range): BP systolic 131–160; BP diastolic 65–97
[2019-02-15] MEDS: ALBUTEROL SULFATE 2.5 MG/0.5 ML NEB SOLUTION NEB SCH ×6 (03:00→23:51)
[2019-02-15] MEDS: IPRATROPIUM BROMIDE 0.5 MG/2.5 ML NEB SOLUTION NEB SCH ×6 (03:00→23:51)
[2019-02-15 06:28] LABS: BASOPHILS % (AUTO) 0.2 % (0.0-2.0); EOSINOPHILS % (AUTO) 1.7 % (1.0-6.0); HEMATOCRIT 29.4 % (41-53); HEMOGLOBIN 9.7 g/dL (13.5-17.5); LYMPHOCYTES # (AUTO) 0.4 K/uL (1.0-4.8); LYMPHOCYTES % (AUTO) 7.1 % (22.0-44.0); MEAN CORPUSCULAR HEMOGLOBIN 28.3 pg (26.0-34.0); MEAN CORPUSCULAR VOLUME 86 fL (80-100); MONOCYTES # (AUTO) 0.6 K/uL (0.1-1.0); MONOCYTES % (AUTO) 9.2 % (2.0-9.0); NEUTROPHILS % (AUTO) 81.8 % (40.0-70.0); RED BLOOD CELL COUNT(AUTO) 3.42 MIL/uL (4.50-5.90); RED CELL DISTRIBUTION WIDTH 16.7 % (11.5-14.5)
[2019-02-15 06:57] LABS: CALCIUM, TOTAL 8.2 mg/dL (8.8-10.5); CREATININE 3.74 mg/dL (0.60-1.30); MAGNESIUM 1.8 mg/dL (1.80-2.40); PHOSPHORUS 3.1 mg/dL (2.5-4.9); POTASSIUM 5.1 mmol/L (3.5-5.1)
[2019-02-15 07:04] LABS: PLATELET COUNT (AUTO) 184 K/uL (150-450)
[2019-02-15] MEDS: BUDESONIDE 0.5 MG/2 ML NEB SOLUTION NEB SCH ×2 (08:01→19:35)
[2019-02-15] MEDS: ETHAMBUTOL HCL 400 MG TABLET PO SCH (08:14)
[2019-02-15] MEDS: RIFAMPIN 300 MG CAPSULE PO SCH (08:14)
[2019-02-15] MEDS: PYRAZINAMIDE 500 MG TABLET PO SCH (08:14)
[2019-02-15] MEDS: LOSARTAN POTASSIUM 50 MG TABLET PO SCH (08:15)
[2019-02-15] MEDS: ISONIAZID 300 MG TABLET PO SCH (08:15)
[2019-02-15] MEDS: AmLODIPine BESYLATE 10 MG TABLET PO SCH (08:15)
[2019-02-15] MEDS: ASPIRIN 81 MG CHEWABLE TABLET PO SCH (08:15)
[2019-02-15] MEDS: SEVELAMER CARBONATE 800 MG TABLET PO SCH ×3 (08:15→17:45)
[2019-02-15] MEDS: CARVEDILOL 12.5 MG TABLET PO SCH ×2 (08:15→21:01)
[2019-02-15] MEDS: PYRIDOXINE HCL 50 MG TABLET PO SCH (08:15)
[2019-02-15] MEDS: HEPARIN SODIUM,PORCINE 5,000 UNITS/ML VIAL SQ SCH ×2 (08:16→21:01)
[2019-02-15] MEDS ORDERED: SODIUM CHLORIDE 0.9% 2,000 ML IV ONE (10:54)
[2019-02-15 13:59] LABS: GLUCOMETER DEV NAME(LOC) 5S.1; GLUCOSE,POINT OF CARE 258 MG/DL (70-110)
[2019-02-15 13:59] LABS: GLUCOMETER DEV NAME(LOC) 5S.1; GLUCOSE,POINT OF CARE 159 MG/DL (70-110)
[2019-02-15 13:59] LABS: GLUCOMETER DEV NAME(LOC) 5S.1; GLUCOSE,POINT OF CARE 259 MG/DL (70-110)
[2019-02-15] MEDS ORDERED: LIDOCAINE/PF 1% 5 ML VIAL INJ ONE (15:00)
[2019-02-15] MEDS ORDERED: LORazepam 2 MG/ML VIAL IVP ONE (16:30)
[2019-02-15] MEDS: ONDANSETRON HCL 4 MG/2 ML VIAL IVP PRN (17:42)
[2019-02-15 19:17] LABS: APPEARANCE,CSF CLEAR (CLEAR); COLOR,CSF COLORLESS (COLORLESS); CSF TUBE NUMBER 1; LYMPHOCYTES1,CSF 0 %; NEUTROPHILS1,CSF 0 %
[2019-02-15 19:18] LABS: APPEARANCE2,CSF CLEAR (CLEAR); COLOR2,CSF COLORLESS (COLORLESS); CSF 2ND TUBE NUMBER 4; LYMPHOCYTES2,CSF 0 %; MONOCYTES1,CSF 0 %; MONOCYTES2,CSF 0 %; NEUTROPHILS2,CSF 0 %
[2019-02-15 19:22] LABS: GLUCOSE, CSF 99 mg/dL (50-80); TOTAL PROTEIN, CSF 48 mg/dL (15-45)
[2019-02-15] MEDS: PANTOPRAZOLE SODIUM 40 MG DR TABLET PO SCH (21:01)
[2019-02-15] MEDS: INSULIN LISPRO 100 UNITS/ML SQ PRN (21:38)
[2019-02-15] MEDS ORDERED: LORazepam 0.5 MG TABLET PO PRN (22:15)
[2019-02-16] VITALS (10 sets, daily range): BP systolic 121–162; BP diastolic 62–81
[2019-02-16 02:31] LABS: GLUCOMETER DEV NAME(LOC) 5S.2A; GLUCOSE,POINT OF CARE 131 MG/DL (70-110)
[2019-02-16 02:32] LABS: GLUCOMETER DEV NAME(LOC) 5S.2A; GLUCOSE,POINT OF CARE 225 MG/DL (70-110)
[2019-02-16] MEDS: IPRATROPIUM BROMIDE 0.5 MG/2.5 ML NEB SOLUTION NEB SCH ×6 (03:15→23:00)
[2019-02-16] MEDS: ALBUTEROL SULFATE 2.5 MG/0.5 ML NEB SOLUTION NEB SCH ×6 (03:15→23:00)
[2019-02-16] MEDS: INSULIN LISPRO 100 UNITS/ML SQ PRN ×3 (05:58→22:05)
[2019-02-16 07:00] LABS: BASOPHILS % (AUTO) 0.1 % (0.0-2.0); EOSINOPHILS % (AUTO) 0.1 % (1.0-6.0); HEMATOCRIT 26.3 % (41-53); HEMOGLOBIN 8.6 g/dL (13.5-17.5); LYMPHOCYTES # (AUTO) 0.3 K/uL (1.0-4.8); LYMPHOCYTES % (AUTO) 3.9 % (22.0-44.0); MEAN CORPUSCULAR HGB CONC 32.6 G/dL (31.0-37.0); MEAN CORPUSCULAR VOLUME 86 fL (80-100); MONOCYTES # (AUTO) 0.4 K/uL (0.1-1.0); MONOCYTES % (AUTO) 5.7 % (2.0-9.0); NEUTROPHILS # (AUTO) 7.1 K/uL (1.8-7.7); RED BLOOD CELL COUNT(AUTO) 3.07 MIL/uL (4.50-5.90); RED CELL DISTRIBUTION WIDTH 16.6 % (11.5-14.5)
[2019-02-16 07:09] LABS: NEUTROPHILS % (AUTO) 90.2 % (40.0-70.0)
[2019-02-16 07:10] LABS: PLATELET COUNT (AUTO) 173 K/uL (150-450)
[2019-02-16 07:16] LABS: CALCIUM, TOTAL 8.5 mg/dL (8.8-10.5); CREATININE 3.48 mg/dL (0.60-1.30); MAGNESIUM 1.7 mg/dL (1.80-2.40); PHOSPHORUS 3.4 mg/dL (2.5-4.9); POTASSIUM 5.1 mmol/L (3.5-5.1)
[2019-02-16 07:40] LABS: GLUCOMETER DEV NAME(LOC) 5S.1; GLUCOSE,POINT OF CARE 135 MG/DL (70-110)
[2019-02-16 07:40] LABS: GLUCOMETER DEV NAME(LOC) 5S.1; GLUCOSE,POINT OF CARE 137 MG/DL (70-110)
[2019-02-16 07:40] LABS: GLUCOMETER DEV NAME(LOC) 5S.1; GLUCOSE,POINT OF CARE 178 MG/DL (70-110)
[2019-02-16] MEDS: BUDESONIDE 0.5 MG/2 ML NEB SOLUTION NEB SCH ×2 (07:51→19:30)
[2019-02-16] MEDS: SEVELAMER CARBONATE 800 MG TABLET PO SCH ×2 (08:57→12:13)
[2019-02-16] MEDS: ASPIRIN 81 MG CHEWABLE TABLET PO SCH (08:58)
[2019-02-16] MEDS: CARVEDILOL 12.5 MG TABLET PO SCH ×2 (08:59→20:37)
[2019-02-16] MEDS: LOSARTAN POTASSIUM 50 MG TABLET PO SCH (08:59)
[2019-02-16] MEDS: ISONIAZID 300 MG TABLET PO SCH (08:59)
[2019-02-16] MEDS: AmLODIPine BESYLATE 10 MG TABLET PO SCH (09:00)
[2019-02-16] MEDS: RIFAMPIN 300 MG CAPSULE PO SCH (09:00)
[2019-02-16] MEDS: HEPARIN SODIUM,PORCINE 5,000 UNITS/ML VIAL SQ SCH ×2 (09:02→20:37)
[2019-02-16] MEDS: PYRIDOXINE HCL 50 MG TABLET PO SCH (09:08)
[2019-02-16 15:00] LABS: BILIRUBIN,DIRECT 0.5 mg/dL (0.00-0.20); BILIRUBIN,TOTAL 0.8 mg/dL (0.1-1.0); TOTAL PROTEIN, SERUM 6.5 g/dL (6.4-8.2)
[2019-02-16] MEDS: PANTOPRAZOLE SODIUM 40 MG DR TABLET PO SCH (20:37)
[2019-02-17] MEDS: ALBUTEROL SULFATE 2.5 MG/0.5 ML NEB SOLUTION NEB SCH ×4 (03:00→14:33)
[2019-02-17] MEDS: IPRATROPIUM BROMIDE 0.5 MG/2.5 ML NEB SOLUTION NEB SCH ×4 (03:00→14:33)
[2019-02-17 04:30] VITALS: BP 157/74
[2019-02-17 06:04] LABS: GLUCOMETER DEV NAME(LOC) 5S.1; GLUCOSE,POINT OF CARE 142 MG/DL (70-110)
[2019-02-17 06:04] LABS: GLUCOMETER DEV NAME(LOC) 5S.1; GLUCOSE,POINT OF CARE 227 MG/DL (70-110)
[2019-02-17 06:05] LABS: GLUCOMETER DEV NAME(LOC) 5S.2A; GLUCOSE,POINT OF CARE 159 MG/DL (70-110)
[2019-02-17 06:05] LABS: GLUCOMETER DEV NAME(LOC) 5S.1; GLUCOSE,POINT OF CARE 126 MG/DL (70-110)
[2019-02-17] MEDS: INSULIN LISPRO 100 UNITS/ML SQ PRN (06:59)
[2019-02-17] MEDS: BUDESONIDE 0.5 MG/2 ML NEB SOLUTION NEB SCH (07:56)
[2019-02-17 08:40] VITALS: BP 131/55
[2019-02-17 10:29] VITALS: BP 146/61
[2019-02-17] MEDS: PYRAZINAMIDE 500 MG TABLET PO SCH (10:41)
[2019-02-17] MEDS: PYRIDOXINE HCL 50 MG TABLET PO SCH (10:41)
[2019-02-17] MEDS: ASPIRIN 81 MG CHEWABLE TABLET PO SCH (10:41)
[2019-02-17] MEDS: ETHAMBUTOL HCL 400 MG TABLET PO SCH (10:41)
[2019-02-17] MEDS: CARVEDILOL 12.5 MG TABLET PO SCH (10:41)
[2019-02-17] MEDS: AmLODIPine BESYLATE 10 MG TABLET PO SCH (10:42)
[2019-02-17] MEDS: RIFAMPIN 300 MG CAPSULE PO SCH (10:42)
[2019-02-17] MEDS: SEVELAMER CARBONATE 800 MG TABLET PO SCH ×2 (10:42→12:00)
[2019-02-17] MEDS: LOSARTAN POTASSIUM 50 MG TABLET PO SCH (10:42)
[2019-02-17] MEDS: ISONIAZID 300 MG TABLET PO SCH (10:42)
[2019-02-17] MEDS: HEPARIN SODIUM,PORCINE 5,000 UNITS/ML VIAL SQ SCH (10:43)
[2019-02-17] MEDS ORDERED: RIFA300 PO (14:14)
[2019-02-17] MEDS ORDERED: ISON300 PO (14:17)
[2019-02-17] MEDS ORDERED: ETHA400 PO (14:17)
[2019-02-17] MEDS ORDERED: PYRA500 PO (14:18)
[2019-02-17] MEDS ORDERED: PYRI50 PO (14:20)
[2019-02-17 23:05] LABS: GLUCOMETER DEV NAME(LOC) 5S.1; GLUCOSE,POINT OF CARE 171 MG/DL (70-110)
[2019-02-17 23:05] LABS: GLUCOMETER DEV NAME(LOC) 5S.1; GLUCOSE,POINT OF CARE 127 MG/DL (70-110)
[2019-02-18] MEDS ORDERED: EPOETIN ALFA 10,000 UNITS/ML VIAL SQ SCH (09:00)
[2019-03-14] MEDS ORDERED: A20IH1 IH (13:42)
[2019-03-14] MEDS ORDERED: IPRNEB IH ×2 (13:43→13:48)
[2019-03-14] MEDS ORDERED: LACT1POW8 MC (13:44)
[2019-03-14] MEDS ORDERED: LOSA25TA41 PO (13:45)
[2019-03-14] MEDS ORDERED: MEGE400O23 PO (13:46)
[2019-03-14] MEDS ORDERED: METR250 PO (13:46)
[2019-03-14] MEDS ORDERED: RIFAB150 PO (13:47)
[2019-03-14] MEDS ORDERED: ACET-2247 PO (13:47)
[2019-03-14] MEDS ORDERED: AUD NEB (13:48)
[2019-03-14] MEDS ORDERED: LOPE-202 PO (13:49)
[2019-03-14] MEDS ORDERED: ONDA-104 PO (13:50)
== END 2019-02-17 15:25 | disposition home or self-care (01) | DRG 291 ==
LOC: EMS 16:43 → 5N 19:57
PROVIDERS: ADMIT Internal Medicine Geriatric Medicine; ATTEND Internal Medicine Geriatric Medicine
PROC: 0W993ZZ Drainage of Right Pleural Cavity, Percutaneous Approach (ICD-10-PCS; principal; 2019-02-09)
PROC: 5A1D70Z Performance of Urinary Filtration, Intermittent, Less than 6 Hours Per Day (ICD-10-PCS; 2019-02-09)
PROC: 5A1D70Z Performance of Urinary Filtration, Intermittent, Less than 6 Hours Per Day (ICD-10-PCS; 2019-02-10)
PROC: 5A1D70Z Performance of Urinary Filtration, Intermittent, Less than 6 Hours Per Day (ICD-10-PCS; 2019-02-12)
PROC: 5A1D70Z Performance of Urinary Filtration, Intermittent, Less than 6 Hours Per Day (ICD-10-PCS; 2019-02-14)
PROC: 5A1D70Z Performance of Urinary Filtration, Intermittent, Less than 6 Hours Per Day (ICD-10-PCS; 2019-02-15)
PROC: 5A1D70Z Performance of Urinary Filtration, Intermittent, Less than 6 Hours Per Day (ICD-10-PCS; 2019-02-17)
DX: I13.2 Hypertensive heart and chronic kidney disease with heart failure and with stage 5 chronic kidney disease, or end stage renal disease (principal); N18.6 End stage renal disease; G93.41 Metabolic encephalopathy; I50.33 Acute on chronic diastolic (congestive) heart failure; J81.1 Chronic pulmonary edema; A15.0 Tuberculosis of lung; E44.0 Moderate protein-calorie malnutrition; J90 Pleural effusion, not elsewhere classified; Z68.1 Body mass index [BMI] 19.9 or less, adult; E87.1 Hypo-osmolality and hyponatremia; I50.20 Unspecified systolic (congestive) heart failure; Z99.81 Dependence on supplemental oxygen; E11.22 Type 2 diabetes mellitus with diabetic chronic kidney disease; E78.5 Hyperlipidemia, unspecified; E11.51 Type 2 diabetes mellitus with diabetic peripheral angiopathy without gangrene; R91.8 Other nonspecific abnormal finding of lung field; D63.1 Anemia in chronic kidney disease; E78.00 Pure hypercholesterolemia, unspecified; E87.5 Hyperkalemia; E11.65 Type 2 diabetes mellitus with hyperglycemia; I25.10 Atherosclerotic heart disease of native coronary artery without angina pectoris; E11.649 Type 2 diabetes mellitus with hypoglycemia without coma; E11.319 Type 2 diabetes mellitus with unspecified diabetic retinopathy without macular edema; F01.50 Vascular dementia, unspecified severity, without behavioral disturbance, psychotic disturbance, mood disturbance, and anxiety; E87.6 Hypokalemia; I25.5 Ischemic cardiomyopathy; Z99.2 Dependence on renal dialysis; Z95.1 Presence of aortocoronary bypass graft; Z89.511 Acquired absence of right leg below knee; Z87.891 Personal history of nicotine dependence; Z88.8 Allergy status to other drugs, medicaments and biological substances; Z88.1 Allergy status to other antibiotic agents; Z86.73 Personal history of transient ischemic attack (TIA), and cerebral infarction without residual deficits; Z83.3 Family history of diabetes mellitus; Z86.11 Personal history of tuberculosis; Z87.441 Personal history of nephrotic syndrome
CPT/HCPCS: 32555; 70450; 73502; 73503; 74019; 76942; 82465; 82945; 83036; 83605; 83615; 83735; 83986; 84100; 84157; 84311; 84439; 84443; 85014; 85018; 87015; 87040; 87070; 87081; 87101; 87205; 87206; 87340; 87566; 89051; 93005; 93306; 94640; 97167; 97530; 97535; 99291; J1644; J1815; J1940; J2001; J2060; J2405; J7030

== ENCOUNTER 2019-03-30 18:11 | Emergency (ER) | payer OTHER ==
[~2019-03-30] VITALS: Ht 165.1 cm; Wt 54.5 kg
[~2019-03-30 18:11] MED LIST changes: +A20IH1 IH; +AMLO10TA7 PO; -AMLO5TAB66 PO; -ASPI-556 PO; +ASPI81TA39 PO; -BISA10S PR; +CARV12.530 PO; -CARV3 PO; -CEFE2I IV; -DSS100 PO; -EPOE10003 SQ; +ETHA400 PO; -INSLAN SQ; +ISON300 PO; +LACT1POW8 MC; +LOPE-202 PO; +LOSA25TA41 PO; +MEGE400O23 PO; -MELA3TAB66 PO; +METR250 PO; -MOM30 PO; -ONDA-104 IV; +ONDA-104 PO; -PERCT PO; -PHOSLOC PO; -PRAV40TA4 PO; -PRED20 PO; +PYRA500 PO; +PYRI50 PO; +RIFA300 PO; +RIFAB150 PO; +SEVE800T7 PO; -SIMV-259 PO; -ZOLP5 PO
[2019-03-30] MEDS ORDERED: ASPIRIN 81 MG CHEWABLE TABLET PO ONE (18:45)
[2019-03-30 19:02] LABS: GLUCOSE,POINT OF CARE 205 MG/DL (70-110)
[2019-03-30 19:51] LABS: BASOPHILS % (AUTO) 0.1 % (0.0-2.0); EOSINOPHILS % (AUTO) 0.4 % (1.0-6.0); HEMATOCRIT 34.8 % (41-53); HEMOGLOBIN 11.1 g/dL (13.5-17.5); LYMPHOCYTES # (AUTO) 0.5 K/uL (1.0-4.8); LYMPHOCYTES % (AUTO) 9.8 % (22.0-44.0); MEAN CORPUSCULAR HEMOGLOBIN 31.6 pg (26.0-34.0); MEAN CORPUSCULAR VOLUME 99 fL (80-100); MONOCYTES # (AUTO) 0.4 K/uL (0.1-1.0); MONOCYTES % (AUTO) 6.6 % (2.0-9.0); NEUTROPHILS # (AUTO) 4.6 K/uL (1.8-7.7); NEUTROPHILS % (AUTO) 83.1 % (40.0-70.0); RED BLOOD CELL COUNT(AUTO) 3.52 MIL/uL (4.50-5.90); RED CELL DISTRIBUTION WIDTH 17.1 % (11.5-14.5)
[2019-03-30 20:01] LABS: CALCIUM, TOTAL 8.1 mg/dL (8.8-10.5); CREATININE 3.47 mg/dL (0.60-1.30); POTASSIUM 5.4 mmol/L (3.5-5.1)
[2019-03-30 20:07] LABS: ALBUMIN 2.7 g/dL (3.4-5.0); TOTAL PROTEIN, SERUM 7.7 g/dL (6.4-8.2)
[2019-03-30 20:22] LABS: PLATELET COUNT (AUTO) 149 K/uL (150-450)
[2019-03-30 21:00] VITALS: BP 148/74
== END 2019-03-30 21:43 | disposition home or self-care (01) ==
LOC: EMS 18:14
DX: I12.0 Hypertensive chronic kidney disease with stage 5 chronic kidney disease or end stage renal disease (principal); E11.22 Type 2 diabetes mellitus with diabetic chronic kidney disease; N18.6 End stage renal disease; F03.90 Unspecified dementia, unspecified severity, without behavioral disturbance, psychotic disturbance, mood disturbance, and anxiety; E11.9 Type 2 diabetes mellitus without complications; E78.00 Pure hypercholesterolemia, unspecified; E78.5 Hyperlipidemia, unspecified; Z99.2 Dependence on renal dialysis; Z86.73 Personal history of transient ischemic attack (TIA), and cerebral infarction without residual deficits; Z95.1 Presence of aortocoronary bypass graft; Z79.899 Other long term (current) drug therapy; Z79.4 Long term (current) use of insulin; Z88.1 Allergy status to other antibiotic agents; Z88.5 Allergy status to narcotic agent; Z88.8 Allergy status to other drugs, medicaments and biological substances; W06.XXXA Fall from bed, initial encounter; Y93.89 Activity, other specified; Y92.89 Other specified places as the place of occurrence of the external cause; Y99.8 Other external cause status
CPT/HCPCS: 93005